=== PATIENT | female | born 1980 | race Caucasian/White ===

== ENCOUNTER 2016-11-26 09:09 | Emergency (ER) | payer BC ==
[~2016-11-26] VITALS: Ht 157.5 cm; Wt 68.0 kg
[2016-11-26] MEDS ORDERED: KETOROLAC TROMETHAMINE 30 MG/ML SYRINGE. IV ONE (10:00)
[2016-11-26] MEDS ORDERED: ONDANSETRON PF 4 MG/2 ML VIAL. IV ONE (10:00)
[2016-11-26 10:12] LABS: BILIRUBIN,URINE NEGATIVE (NEG); GLUCOSE,URINE NEGATIVE (NEG); NITRITE,URINE NEGATIVE (NEG); PH,URINE 5.5; PROTEIN,URINE NEGATIVE (NEG-TRACE); UROBILINOGEN,URINE 0.2 mg/dL (0.2 mg/dL); WBC,URINE OCC /HPF (0-4)
[2016-11-26 10:13] LABS: BACTERIA,URINE FEW /HPF (0-FEW); SQUAMOUS EPITHELIAL CELL,UR MANY /LPF
[2016-11-26 10:16] LABS: CALCIUM 9.1 mg/dL (8.5-10.1); GFR 62.1; POTASSIUM 3.2 mmol/L (3.5-5.1)
--- NOTE | 2016-11-26 10:43 | PHYS DOC ---
Past Medical History Past Medical History: Hypothyroid, Kidney Stone, Migraines, Other Additional Past Medical Histor: ADD,INSOMNIA Past Surgical History: Appendectomy, Hysterectomy, Other Additional Past Surgical Histo: LITHOTRIPSY,BREAST IMPLANTS Additional Information: 0.5 PPD Alcohol Use: Occasionally Drug Use: None Adult General Chief Complaint Chief Complaint: FLANK PAIN [facility] HPI Patient is a 36 year old female with history of kidney stones who presents with left flank pain starting while at work today. Pain is colicky and associated with nausea exactly like prior kidney stone pain. Pain is starting to improve since arrival here, but persists. She denies emesis, fever or chills , dysuria, hematuria, abdominal pain, diarrhea, constipation, cough, dyspnea. Review of Systems Review of Systems Constitutional: Denies fever or chills [] Eyes: Denies change in visual acuity, redness, or eye pain [] HENT: Denies nasal congestion or sore throat [] Respiratory: Denies cough or shortness of breath [] Cardiovascular: No additional information not addressed in HPI [] GI: Denies abdominal pain, nausea, vomiting, bloody stools or diarrhea [] : Denies dysuria or hematuria [] Musculoskeletal: Denies joint pain [] Integument: Denies rash or skin lesions [] Neurologic: Denies headache, focal weakness or sensory changes [] Endocrine: Denies polyuria or polydipsia [] Current Medications Current Medications Current Medications Medications (Trade) Dose Ordered [facility] Start Time Stop Time Status Last Admin Dose Admin Ketorolac Tromethamine (Toradol) 15 mg 1X ONCE 11/26/16 10:00 11/26/16 10:01 DC 11/26/16 10:03 15 MG Ondansetron HCl (Zofran) 4 mg 1X ONCE 11/26/16 10:00 11/26/16 10:01 DC 11/26/16 10:03 4 MG Allergies Allergies Allergies Coded Allergies Type Severity Reaction Last Updated Verified No Known Drug Allergies 11/26/16 No Physical Exam Physical Exam Constitutional: Well developed, well nourished, no acute distress, non-toxic appearance. [] HENT: Normocephalic, atraumatic, bilateral external ears normal, oropharynx moist, nose normal. [] Eyes: PERRLA, EOMI. [] Neck: Normal range of motion, supple. [] Cardiovascular:Heart rate regular rhythm [] Lungs & Thorax: Bilateral breath sounds clear to auscultation [] Abdomen: Bowel sounds normal, soft, no tenderness. [] Skin: Warm, dry, no erythema, no rash. [] Back: No tenderness, no CVA tenderness. [] Extremities: ROM intact, no edema. [] Neurologic: Alert and oriented X 3, normal motor function, normal sensory function, no focal deficits noted. [] Psychologic: Affect normal, judgement normal, mood normal. [] Current Patient Data Vital Signs Vital Signs Date Time Temp Pulse Resp B/P Pulse Ox O2 Delivery O2 Flow Rate FiO2 11/26/16 10:50 71 20 114/72 97 Room Air 11/26/16 09:20 98 98.0 Lab Values Laboratory Tests Test 11/26/16 09:23 11/26/16 09:50 Urine Collection Type Unknown Urine Color Yellow Urine Clarity Clear Urine pH 5.5 Urine Specific [place] 1.025 Urine Protein Negativemg/dL (NEG-TRACE) Urine Glucose (UA) Negativemg/dL (NEG) Urine Ketones (Stick) Negativemg/dL (NEG) Urine Blood Large (NEG) Urine Nitrite Negative (NEG) Urine Bilirubin Negative (NEG) Urine Urobilinogen Dipstick 0.2mg/dL (0.2 mg/dL) Urine Leukocyte Esterase Negative (NEG) Urine RBC 11-20/HPF (0-2) Urine WBC Occ/HPF (0-4) Urine Squamous Epithelial Cells Many/LPF Urine Bacteria Few/HPF (0-FEW) Urine Mucus Marked/LPF Sodium Level 144mmol/L (136-145) Potassium Level 3.2mmol/L (3.5-5.1) L Chloride Level 104mmol/L (98-107) Carbon Dioxide Level 30mmol/L (21-32) Anion Gap 10 (6-14) Blood Urea Nitrogen 14mg/dL (7-20) Creatinine 1.0mg/dL (0.6-1.0) Estimated GFR (Cockcroft-Gault) 62.1 Glucose Level 107mg/dL (70-99) H Calcium Level 9.1mg/dL (8.5-10.1) Laboratory Tests 11/26/16 09:50 Radiology/Procedures Radiology/Procedures Ultrasound left renal Impression: 7 mm nonobstructing left renal calculus. DICTATED and SIGNED BY: LISE BRITO MD DATE: 11/26/16 1104 Course & Med Decision Making Course & Med Decision Making Pertinent Labs and Imaging studies reviewed. (See chart for details) She is feeling better after medications. Workup showing hematuria and ultrasound as above. Suspect passed a kidney stone. Recommend she follow-up with primary care and urology. Return precautions given. She understands and agrees with plan. Dragon Disclaimer Dragon Disclaimer This electronic medical record was generated, in whole or in part, using a voice recognition dictation system. Departure Departure Impression: Primary Impression: Renal colic on left side Disposition: HOME, SELF-CARE Condition: STABLE Referrals: JUAN CAMARENA MD (PCP) Patient Instructions: Kidney Stones, [id number] Additional Instructions: Take toradol (ketorolac) as needed for pain. Take zofran as needed for nausea. Follow up with your urologist and primary care doctor. Return for any concerns. Scripts Ondansetron (Zofran Odt)4 Mg Tab.rapdis1 Tab SL Q8HRS #10 TAB Prov:Bipin COBURN MD 11/26/16 Ketorolac Tromethamine 10 Mg Tablet1 Tab PO TID #15 TAB Prov:Bipin COBURN MD 11/26/16 Bipin COBURN MD Nov 26, 2016 10:43
[2016-11-26] MEDS ORDERED: KETO10TA PO (10:45)
[2016-11-26] MEDS ORDERED: ONDA4TAB10 SL (10:45)
[2016-11-26 10:50] VITALS: BP 114/72
--- NOTE | 2016-11-26 11:10 | RAD ---
Renal ultrasound 11/26/2016 Clinical history: Left flank pain. Technique: A real-time ultrasound examination of both kidneys and the urinary bladder was performed. Multiple images were obtained. Findings: Both kidneys are within normal limits in size and echogenicity. Both kidneys measure 9.9 cm in length. No focal abnormality of the right kidney is seen. A 7 mm echogenic focus is seen within the midpole of the left kidney which appears to shadow to some degree and likely represents a nonobstructing calculus. There is no evidence of hydronephrosis. The urinary bladder is slightly contracted. No abnormality is seen. Impression: 7 mm nonobstructing left renal calculus.
== END 2016-11-26 10:58 | disposition home or self-care (01) ==
LOC: ER 09:09
DX: N23 Unspecified renal colic (principal); E03.9 Hypothyroidism, unspecified; G47.00 Insomnia, unspecified; G43.909 Migraine, unspecified, not intractable, without status migrainosus; F98.8 Other specified behavioral and emotional disorders with onset usually occurring in childhood and adolescence; F17.210 Nicotine dependence, cigarettes, uncomplicated; Z90.710 Acquired absence of both cervix and uterus; Z87.442 Personal history of urinary calculi
CPT/HCPCS: 36415; 76770; 80048; 81001; 96374; 96375; 99285; J1885; J2405

== ENCOUNTER 2017-03-11 09:37 | Emergency (ER) | payer BC ==
[~2017-03-11] VITALS: Ht 165.1 cm; Wt 69.4 kg
[~2017-03-11 09:37] MED LIST: KETO10TA PO; ONDA4TAB10 SL
[2017-03-11 10:04] LABS: GLUCOSE,URINE NEGATIVE (NEG); NITRITE,URINE NEGATIVE (NEG); PROTEIN,URINE 100 mg/dL (NEG-TRACE)
[2017-03-11 10:23] LABS: RBC,URINE TNTC /HPF (0-2)
[2017-03-11 10:25] LABS: BACTERIA,URINE FEW /HPF (0-FEW); SQUAMOUS EPITHELIAL CELL,UR MANY /LPF
[2017-03-11] MEDS ORDERED: IV NORMAL SALINE 1000ML BAG 1,000 ML IV ONE (11:15)
[2017-03-11 11:50] LABS: BASO % 1 % (0-3); EOS % 3 % (0-3); HEMATOCRIT 41.9 % (36.0-47.0); HEMOGLOBIN 14.7 g/dL (12.0-15.5); LYMPH # 2.3 x10^3/uL (1.0-4.8); LYMPH % 36 % (24-48); MEAN CORPUSCULAR HEMOGLOBIN 32 pg (25-35); MEAN CORPUSCULAR HGB CONC 35 g/dL (31-37); MEAN CORPUSCULAR VOLUME 90 fL (79-100); MONO % 4 % (0-9); NEUT % 57 % (31-73); PLATELET COUNT 210 x10^3/uL (140-400); RED BLOOD COUNT 4.63 x10^6/uL (3.50-5.40); RED CELL DISTRIBUTION WIDTH 13.4 % (11.5-14.5); WHITE BLOOD COUNT 6.5 x10^3/uL (4.0-11.0)
--- NOTE | 2017-03-11 11:54 | RAD ---
Examination: CT of the abdomen pelvis without contrast History: History of left flank pain. Comparison: None available Technique: Axial CT images of the abdomen pelvis were performed without contrast with coronal and sagittal reformats are performed PQRS Compliance Statement: One or more of the following individualized dose reduction techniques were utilized for this examination: 1. Automated exposure control 2. Adjustment of the mA and/or kV according to patient size 3. Use of iterative reconstruction technique Findings: Mild groundglass opacities identified in the bibasal lungs. No evidence of free air identified in the abdomen. The evaluation of the solid organs is limited due to lack of IV contrast. Evaluation of the bowel is limited due to lack of oral contrast. The visualized noncontrasted liver, spleen, adrenals grossly appears unremarkable. The gallbladder is mildly distended. The stomach is mildly distended. The visualized pancreas grossly appears unremarkable. The small bowel is nondilated. The appendix is not identified. Feces and gas noted throughout the colon. Urinary bladder is mildly distended. No evidence of intrarenal collecting system calculi or hydronephrosis identified. There is a small calcific density identified along the course of the distal left ureter best visualized on series 2 image #179 measuring 3 mm could be a pelvic phlebolith as there is no evidence of hydronephrosis or a ureteral calculus is not completely excluded. The caliber of the aorta grossly appears unremarkable. No evidence of lytic bony destructive lesion. Bilateral breast prosthesis. Impression: 1. No evidence of intrarenal collecting system calculi identified. Along the course of the left distal ureter on series 2 image 179, here is a 3 mm calcification identified without evidence of hydronephrosis. Differential includes pelvic phlebolith or ureteral calculus without hydronephrosis. 2. Groundglass opacities in the bibasal lungs likely atelectasis or infiltrates.
[2017-03-11 12:28] LABS: CALCIUM 8.2 mg/dL (8.5-10.1); CREATININE 0.8 mg/dL (0.6-1.0); GFR 80.3; POTASSIUM 4.1 mmol/L (3.5-5.1)
[2017-03-11 12:32] VITALS: BP 118/78
[2017-03-11 12:34] LABS: ALBUMIN 3.1 g/dL (3.4-5.0); ALBUMIN/GLOBULIN RATIO 0.9 (1.0-1.7); TOTAL BILIRUBIN 0.3 mg/dL (0.2-1.0); TOTAL PROTEIN 6.6 g/dL (6.4-8.2)
[2017-03-11] MEDS ORDERED: ONDA4TAB10 SL (13:07)
[2017-03-11] MEDS ORDERED: HYDR-971 PO (13:07)
[2017-03-11] MEDS ORDERED: CIPR500T94 PO (13:07)
[2017-03-11] MEDS ORDERED: TAMS0.4C97 PO (13:07)
--- NOTE | 2017-03-11 13:07 | PHYS DOC ---
Past Medical History Past Medical History: Hypothyroid, Kidney Stone, Migraines, Other Additional Past Medical Histor: ADD,INSOMNIA Past Surgical History: Appendectomy, Hysterectomy, Other Additional Past Surgical Histo: LITHOTRIPSY,BREAST IMPLANTS Alcohol Use: Occasionally Drug Use: None Adult General Chief Complaint Chief Complaint: URINARY FREQUENCY HPI HPI Patient is a 36 year old female with history of kidney stones, migraine headaches, hypothyroidism, who presents today with moderate left flank pain radiating to the left low back that began yesterday. Patient is also complaining of hematuria. She has history of hysterectomy. Patient denies any nausea vomiting area did denies any fever. She states she has periumbilical abdominal pain. Patient states she is currently on azithromycin for an upper respiratory infection. Review of Systems Review of Systems Constitutional: Denies fever or chills [] Eyes: Denies change in visual acuity, redness, or eye pain [] HENT: Denies nasal congestion or sore throat [] Respiratory: Denies cough or shortness of breath [] Cardiovascular: No additional information not addressed in HPI [] GI: Denies abdominal pain, nausea, vomiting, bloody stools or diarrhea [] : hematuria and periumbilical pain Musculoskeletal: Left flank pain radiating to or hematuria Left low back pain Integument: Denies rash or skin lesions [] Neurologic: Denies headache, focal weakness or sensory changes [] Endocrine: Denies polyuria or polydipsia [] Current Medications Current Medications Current Medications Medications (Trade) Dose Ordered Sig/[place] Start Time Stop Time Status Last Admin Dose Admin Sodium Chloride 1,000 ml @ 1,000 mls/hr 1X ONCE 03/11/17 11:15 03/11/17 12:14 DC 03/11/17 11:46 1,000 MLS/HR Allergies Allergies Allergies Coded Allergies Type Severity Reaction Last Updated Verified No Known Drug Allergies 11/26/16 No Physical Exam Physical Exam Constitutional: Well developed, well nourished, no acute distress, non-toxic appearance. [] HENT: Normocephalic, atraumatic, bilateral external ears normal, oropharynx moist, no oral exudates, nose normal. [] Eyes: PERRLA, EOMI, conjunctiva normal, no discharge. [] Neck: Normal range of motion, no tenderness, supple, no stridor. [] Cardiovascular:Heart rate regular rhythm, no murmur [] Lungs & Thorax: Bilateral breath sounds clear to auscultation [] Abdomen: Bowel sounds normal, soft, no tenderness, no masses, no pulsatile masses. [] Skin: Warm, dry, no erythema, no rash. [] Back: No tenderness, no CVA tenderness. [] Extremities: No tenderness, no cyanosis, no clubbing, ROM intact, no edema. [] Neurologic: Alert and oriented X 3, normal motor function, normal sensory function, no focal deficits noted. [] Psychologic: Affect normal, judgement normal, mood normal. [] Current Patient Data Vital Signs Vital Signs Date Time Temp Pulse Resp B/P (MAP) Pulse Ox O2 Delivery O2 Flow Rate FiO2 03/11/17 12:32 60 16 118/78 (91) 99 Room Air 03/11/17 09:44 97.9 97.9 Lab Values Laboratory Tests Test 03/11/17 09:44 03/11/17 11:40 03/11/17 12:10 Urine Collection Type Unknown Urine Color Brown Urine Clarity Turbid Urine pH 6.0 Urine Specific [place] >=1.030 Urine Protein 100 mg/dL (NEG-TRACE) Urine Glucose (UA) Negative mg/dL (NEG) Urine Ketones (Stick) mg/dL (NEG) Urine Blood Large (NEG) Urine Nitrite Negative (NEG) Urine Bilirubin (NEG) Urine Urobilinogen Dipstick 1.0 mg/dL (0.2 mg/dL) Urine Leukocyte Esterase (NEG) Urine RBC Tntc /HPF (0-2) Urine WBC 1-4 /HPF (0-4) Urine Squamous Epithelial Cells Many /LPF Urine Bacteria Few /HPF (0-FEW) Urine Mucus Mod /LPF White Blood Count 6.5 x10^3/uL (4.0-11.0) Red Blood Count 4.63 x10^6/uL (3.50-5.40) Hemoglobin 14.7 g/dL (12.0-15.5) Hematocrit 41.9 % (36.0-47.0) Mean Corpuscular Volume 90 fL (79-100) Mean Corpuscular Hemoglobin 32 pg (25-35) Mean Corpuscular Hemoglobin Concent 35 g/dL (31-37) Red Cell Distribution Width 13.4 % (11.5-14.5) Platelet Count 210 x10^3/uL (140-400) Neutrophils (%) (Auto) 57 % (31-73) Lymphocytes (%) (Auto) 36 % (24-48) Monocytes (%) (Auto) 4 % (0-9) Eosinophils (%) (Auto) 3 % (0-3) Basophils (%) (Auto) 1 % (0-3) Neutrophils # (Auto) 3.7 x10^3uL (1.8-7.7) Lymphocytes # (Auto) 2.3 x10^3/uL (1.0-4.8) Monocytes # (Auto) 0.3 x10^3/uL (0.0-1.1) Eosinophils # (Auto) 0.2 x10^3/uL (0.0-0.7) Basophils # (Auto) 0.0 x10^3/uL (0.0-0.2) Sodium Level 141 mmol/L (136-145) Potassium Level 4.1 mmol/L (3.5-5.1) Chloride Level 106 mmol/L (98-107) Carbon Dioxide Level 30 mmol/L (21-32) Anion Gap 5 (6-14) L Blood Urea Nitrogen 19 mg/dL (7-20) Creatinine 0.8 mg/dL (0.6-1.0) Estimated GFR (Cockcroft-Gault) 80.3 BUN/Creatinine Ratio 24 (6-20) H Glucose Level 83 mg/dL (70-99) Calcium Level 8.2 mg/dL (8.5-10.1) L Total Bilirubin 0.3 mg/dL (0.2-1.0) Aspartate Amino Transferase (AST) 25 U/L (15-37) Alanine Aminotransferase (ALT) 38 U/L (14-59) Alkaline Phosphatase 75 U/L (46-116) Total Protein 6.6 g/dL (6.4-8.2) Albumin 3.1 g/dL (3.4-5.0) L Albumin/Globulin Ratio 0.9 (1.0-1.7) L Lipase 90 U/L (73-393) Laboratory Tests 03/11/17 11:40 Laboratory Tests 03/11/17 12:10 EKG EKG [] Radiology/Procedures Radiology/Procedures []PROCEDURE: CT ABDOMEN PELVIS WO CONTRAST Examination: CT of the abdomen pelvis without contrast History: History of left flank pain. Comparison: None available Technique: Axial CT images of the abdomen pelvis were performed without contrast with coronal and sagittal reformats are performed RS Compliance Statement: One or more of the following individualized dose reduction techniques were utilized for this examination: 1. Automated exposure control 2. Adjustment of the mA and/or kV according to patient size 3. Use of iterative reconstruction technique Findings: Mild groundglass opacities identified in the bibasal lungs. No evidence of free air identified in the abdomen. The evaluation of the solid organs is limited due to lack of IV contrast. Evaluation of the bowel is limited due to lack of oral contrast. The visualized noncontrasted liver, spleen, adrenals grossly appears unremarkable. The gallbladder is mildly distended. The stomach is mildly distended. The visualized pancreas grossly appears unremarkable. The small bowel is nondilated. The appendix is not identified. Feces and gas noted throughout the colon. Urinary bladder is mildly distended. No evidence of intrarenal collecting system calculi or hydronephrosis identified. There is a small calcific density identified along the course of the distal left ureter best visualized on series 2 image #179 measuring 3 mm could be a pelvic phlebolith as there is no evidence of hydronephrosis or a ureteral calculus is not completely excluded. The caliber of the aorta grossly appears unremarkable. No evidence of lytic bony destructive lesion. Bilateral breast prosthesis. Impression: 1. No evidence of intrarenal collecting system calculi identified. Along the course of the left distal ureter on series 2 image 179, here is a 3 mm calcification identified without evidence of hydronephrosis. Differential includes pelvic phlebolith or ureteral calculus without hydronephrosis. 2. Groundglass opacities in the bibasal lungs likely atelectasis or infiltrates. DICTATED and SIGNED BY: CARMELO PERDOMO MD DATE: 03/11/17 9071 CC: HEMA SMITH APRN; NON,STAFF; JAUN CAMARENA MD ~ Course & Med Decision Making Course & Med Decision Making Pertinent Labs and Imaging studies reviewed. (See chart for details) Patient is in the ED with complaints of hematuria and left flank pain radiating to the left low back that began yesterday. Patient's labs and negative for any acute findings. Urine was unable to determine if patient has infection on not because of the color. CT of the abdomen and pelvic shows calcifications on the left ureter suspicious for a stone 3mm in size. Ct also concerned for possible atelectasis or infiltrates. Patient was discharged with Flomax and Cipro. Her urine was sent to lab for culture. She is to follow-up with her PCP in one week or urologist. Marcial Disclaimer Marcial Disclaimer This electronic medical record was generated, in whole or in part, using a voice recognition dictation system. Departure Departure Impression: Primary Impression: Renal colic on left side Disposition: 01 HOME, SELF-CARE Condition: STABLE Referrals: JUAN CAMARENA MD (PCP) follow up in one week Patient Instructions: Kidney Stones, [id number] Additional Instructions: You have a possible infected kidney stone. We'll put you on antibiotics Cipro. Stop taking the Z-pack. Follow-up with your doctor in one week. Come back to the ED symptoms worsen. Scripts Ondansetron (ZOFRAN ODT) 4 Mg Tab.rapdis 1 TAB SL Q8HRS, #15 TAB Prov: HEMA SMITH APRN 03/11/17 Hydrocodone/Apap 5-325 (NORCO 5-325 TABLET) 1 Each Tablet 1-2 TAB PO Q4-6HRS, #12 TAB Prov: HEMA SMITH APRN 03/11/17 Tamsulosin Hcl (FLOMAX) 0.4 Mg Cap.er.24h 1 CAP PO DAILY, #7 CAP 11 Refills Prov: HEMA SMITH APRN 03/11/17 Ciprofloxacin Hcl (CIPRO) 500 Mg Tablet 1 TAB PO BID, #14 TAB Prov: HEMA SMITH APRN 03/11/17 HEMA SMITH APRN Mar 11, 2017 13:07
== END 2017-03-11 13:15 | disposition home or self-care (01) ==
LOC: ER 09:37
DX: N23 Unspecified renal colic (principal); J06.9 Acute upper respiratory infection, unspecified; E03.9 Hypothyroidism, unspecified; G43.909 Migraine, unspecified, not intractable, without status migrainosus; G47.00 Insomnia, unspecified; F98.8 Other specified behavioral and emotional disorders with onset usually occurring in childhood and adolescence; Z87.442 Personal history of urinary calculi; Z90.710 Acquired absence of both cervix and uterus; Z90.49 Acquired absence of other specified parts of digestive tract
CPT/HCPCS: 36415; 74176; 80053; 81001; 83690; 85027; 87086; 96360; 99285; J7030

== ENCOUNTER 2017-03-20 10:25 | Inpatient (IN) | payer BC ==
[2017-03-20] VITALS (9 sets, daily range): BP systolic 101–122; BP diastolic 55–76
[~2017-03-20] VITALS: Ht 157.5 cm; Wt 78.5 kg
[~2017-03-20 10:25] MED LIST changes: +CIPR500T94 PO; +HYDR-971 PO; +TAMS0.4C97 PO
[2017-03-20] MEDS: fentaNYL PF VIAL 100 MCG/2 ML VIAL IV PRN ×4 (12:36→18:06)
--- NOTE | 2017-03-20 12:57 | PDOC ---
PROGRESS NOTES Subjective Subjective Pt. with left renal colic Objective Objective Vital Signs Date Time Temp Pulse Resp B/P (MAP) Pulse Ox O2 Delivery O2 Flow Rate FiO2 03/20/17 12:36 Room Air Physical Exam Physical Exam Pt. with 3 mm left distal ureteral stone with obstruction Plan Plan of Care I discussed with the pt. her stone and we discussed the options, alternatives, benefits, risks, and possible complications of continued observation vs. surgical intervention with cystoscopy, left retrograde pyelogram with possible left ureteroscopy with possible laser lithotripsy and stent placement. Pt. understands and wishes to proceed with operation. Will proceed accordingly. Comment Review of Relevant I have reviewed the following items salomon (where applicable) has been applied. Medications Current Medications Fentanyl Citrate (Fentanyl 2ml Vial) 50 mcg PRN Q2HR PRN IV PAIN Last administered on 03/20/17 12:36; Start 03/20/17 at 12:30 Ondansetron HCl (Zofran) 4 mg PRN Q6HRS PRN IV NAUSEA/VOMITING; Start 03/20/17 at 12:30 Sodium Chloride 1,000 ml @ 125 mls/hr 1X ONCE IV Last administered on 12:36; Start 03/20/17 at 13:00; Stop 03/20/17 at 20:59 Active Scripts Active Zofran Odt (Ondansetron) 4 Mg Tab.rapdis 1 Tab SL Q8HRS [place] 5-325 Tablet (Acetaminophen/Hydrocodone Bitart) 1 Each Tablet 1-2 Tab PO Q4-6HRS Flomax (Tamsulosin Hcl) 0.4 Mg Cap.er.24h 1 Cap PO DAILY Cipro (Ciprofloxacin Hcl) 500 Mg Tablet 1 Tab PO BID Zofran Odt (Ondansetron) 4 Mg Tab.rapdis 1 Tab SL Q8HRS Ketorolac Tromethamine 10 Mg Tablet 1 Tab PO TID Vitals/I & O Vital Sign - Last 24 Hours 03/20/17 12:36 O2 Delivery Room Air ELAN GARCIA MD Mar 20, 2017 12:57
[2017-03-20] MEDS ORDERED: IV NORMAL SALINE 1000ML BAG 1,000 ML IV ONE (13:00)
[2017-03-20 13:03] LABS: BASO % 0 % (0-3); EOS % 0 % (0-3); HEMATOCRIT 40.8 % (36.0-47.0); HEMOGLOBIN 13.7 g/dL (12.0-15.5); LYMPH # 1.6 x10^3/uL (1.0-4.8); LYMPH % 15 % (24-48); MEAN CORPUSCULAR HEMOGLOBIN 31 pg (25-35); MEAN CORPUSCULAR HGB CONC 34 g/dL (31-37); MEAN CORPUSCULAR VOLUME 94 fL (79-100); MONO % 3 % (0-9); NEUT % 82 % (31-73); PLATELET COUNT 264 x10^3/uL (140-400); RED BLOOD COUNT 4.36 x10^6/uL (3.50-5.40); RED CELL DISTRIBUTION WIDTH 13.7 % (11.5-14.5); WHITE BLOOD COUNT 10.9 x10^3/uL (4.0-11.0)
[2017-03-20 13:12] LABS: INR 0.9 (0.8-1.1)
--- NOTE | 2017-03-20 13:17 | PDOC2 ---
UROLOGY CONSULT Date of Admission DATE: 03/20/17 TIME: 13:13 ROS ROS: RESPIRATORY: Shortness of breath denies. Cough denies. UROLOGY: Denies blood in urine. Denies difficulty urinating Current Medications Current Medications Fentanyl Citrate (Fentanyl 2ml Vial) 50 mcg PRN Q2HR PRN IV PAIN Last administered on 03/20/17 12:36; Start 03/20/17 at 12:30 Ondansetron HCl (Zofran) 4 mg PRN Q6HRS PRN IV NAUSEA/VOMITING; Start 03/20/17 at 12:30 Sodium Chloride 1,000 ml @ 125 mls/hr 1X ONCE IV Last administered on 12:36; Start 03/20/17 at 13:00; Stop 03/20/17 at 20:59 Active Scripts Active Zofran Odt (Ondansetron) 4 Mg Tab.rapdis 1 Tab SL Q8HRS [place] 5-325 Tablet (Acetaminophen/Hydrocodone Bitart) 1 Each Tablet 1-2 Tab PO Q4-6HRS Flomax (Tamsulosin Hcl) 0.4 Mg Cap.er.24h 1 Cap PO DAILY Cipro (Ciprofloxacin Hcl) 500 Mg Tablet 1 Tab PO BID Zofran Odt (Ondansetron) 4 Mg Tab.rapdis 1 Tab SL Q8HRS Ketorolac Tromethamine 10 Mg Tablet 1 Tab PO TID Allergies: Coded Allergies: No Known Drug Allergies (Unverified , 11/26/16) Physical Examination PHYSICAL EXAMINATION: GENERAL: Gen. appearance: No acute distress. Mood/affect: Pleasant. HEENT: Head: Normocephalic, atraumatic. Airway Impairment: No. CHEST: Shape and expansion: Normal. Expansion: Normal. SKIN: General: Warm. Color: Good. GENITOURINARY:External genitalia - wnl. NEUROLOGICAL: Mental status: Alert and oriented 3. Language: Normal. VITALS Vital Signs Date Time Temp Pulse Resp B/P (MAP) Pulse Ox O2 Delivery O2 Flow Rate FiO2 03/20/17 12:36 Room Air 03/20/17 11:35 97.3 55 20 117/76 (90) 99 97.3 Labs Laboratory Tests Test 03/20/17 12:50 White Blood Count 10.9 x10^3/uL (4.0-11.0) Red Blood Count 4.36 x10^6/uL (3.50-5.40) Hemoglobin 13.7 g/dL (12.0-15.5) Hematocrit 40.8 % (36.0-47.0) Mean Corpuscular Volume 94 fL (79-100) Mean Corpuscular Hemoglobin 31 pg (25-35) Mean Corpuscular Hemoglobin Concent 34 g/dL (31-37) Red Cell Distribution Width 13.7 % (11.5-14.5) Platelet Count 264 x10^3/uL (140-400) Neutrophils (%) (Auto) 82 % (31-73) Lymphocytes (%) (Auto) 15 % (24-48) Monocytes (%) (Auto) 3 % (0-9) Eosinophils (%) (Auto) 0 % (0-3) Basophils (%) (Auto) 0 % (0-3) Neutrophils # (Auto) 8.9 x10^3uL (1.8-7.7) Lymphocytes # (Auto) 1.6 x10^3/uL (1.0-4.8) Monocytes # (Auto) 0.4 x10^3/uL (0.0-1.1) Eosinophils # (Auto) 0.0 x10^3/uL (0.0-0.7) Basophils # (Auto) 0.0 x10^3/uL (0.0-0.2) Prothrombin Time 12.0 SEC (11.7-14.0) Prothromb Time International Ratio 0.9 (0.8-1.1) Laboratory Tests Test 03/20/17 12:50 White Blood Count 10.9 x10^3/uL (4.0-11.0) Red Blood Count 4.36 x10^6/uL (3.50-5.40) Hemoglobin 13.7 g/dL (12.0-15.5) Hematocrit 40.8 % (36.0-47.0) Mean Corpuscular Volume 94 fL (79-100) Mean Corpuscular Hemoglobin 31 pg (25-35) Mean Corpuscular Hemoglobin Concent 34 g/dL (31-37) Red Cell Distribution Width 13.7 % (11.5-14.5) Platelet Count 264 x10^3/uL (140-400) Neutrophils (%) (Auto) 82 % (31-73) Lymphocytes (%) (Auto) 15 % (24-48) Monocytes (%) (Auto) 3 % (0-9) Eosinophils (%) (Auto) 0 % (0-3) Basophils (%) (Auto) 0 % (0-3) Neutrophils # (Auto) 8.9 x10^3uL (1.8-7.7) Lymphocytes # (Auto) 1.6 x10^3/uL (1.0-4.8) Monocytes # (Auto) 0.4 x10^3/uL (0.0-1.1) Eosinophils # (Auto) 0.0 x10^3/uL (0.0-0.7) Basophils # (Auto) 0.0 x10^3/uL (0.0-0.2) Prothrombin Time 12.0 SEC (11.7-14.0) Prothromb Time International Ratio 0.9 (0.8-1.1) Assessment/Plan The patient is a very pleasant 36-year-old white female with history of left renal colic for the past 9 days. Patient was seen in the emergency room on and diagnosed with the left ureteral stone. Patient has continued to have intermittent pain which became severe this morning. Patient with long history of stone disease and she has had prior stone manipulation in the past. Past medical history is significant for hypothyroidism, kidney stones, migraines, ADD , insomnia. Patient has had prior appendectomy hysterectomy cystocele rectocele and sling placement, lithotripsy, breast augmentation. Patient normally on thyroid medication along with hydrochlorothiazide and medication for migraine insomnia and ADD. Patient with no known drug allergies. On physical exam patient has some tenderness in the left flank and abdomen. Patient's CT scan from 03/20/17 shows a 2-3 mm calculus in the distal left ureter producing mild hydroureteronephrosis. White count is 11.4. Creatinine is 1.4. Urine shows greater than 40 red cells 1-4 white cells and a few bacteria and is nitrite positive. I discussed with the patient her left ureteral stone and we discussed the options alternatives benefits risks and possible complications of continued observation and medical expulsive therapy versus surgical intervention with cystoscopy left retrograde pyelogram possible ureteroscopy possible laser lithotripsy and possible left ureteral stent placement. Patient understands this and does wish proceed ahead with operation. We'll therefore proceed accordingly. ELAN GARCIA MD Mar 20, 2017 13:16
[2017-03-20 13:30] LABS: ALBUMIN 3.4 g/dL (3.4-5.0); CALCIUM 7.8 mg/dL (8.5-10.1); CREATININE 1.4 mg/dL (0.6-1.0); GFR 42.1; TOTAL BILIRUBIN 0.2 mg/dL (0.2-1.0); TOTAL PROTEIN 6.9 g/dL (6.4-8.2)
[2017-03-20] MEDS ORDERED: fentaNYL PF VIAL 100 MCG/2 ML VIAL IV PRN (13:45)
[2017-03-20] MEDS ORDERED: LIDOCAINE 1% 1 ML SYRINGE. ID PRN (13:45)
[2017-03-20] MEDS ORDERED: HYDROmorphone 2 MG/ML VIAL IV PRN (13:45)
[2017-03-20] MEDS ORDERED: PROCHLORPERAZINE 10 MG/2 ML VIAL. IV PRN (13:45)
[2017-03-20] MEDS ORDERED: MORPHINE SULFATE 2 MG/ML DISP.SYRIN. IV PRN (13:45)
[2017-03-20] MEDS ORDERED: IV RINGERS,LACTATED 1000ML 1,000 ML IV SCH (14:00)
[2017-03-20] MEDS ORDERED: PHEN-443 PO (14:05)
[2017-03-20] MEDS ORDERED: LEVO100T PO (14:05)
[2017-03-20] MEDS ORDERED: HYDR25TA9 PO (14:05)
[2017-03-20] MEDS ORDERED: ZOLP10TA PO (14:05)
[2017-03-20] MEDS ORDERED: IOHEXOL 300 MG/ML 50 ML VIAL. ONE (14:15)
[2017-03-20] MEDS ORDERED: LIDOCAINE 2% JELLY 6ML IN APPLICATOR. ONE (14:15)
[2017-03-20] MEDS: ONDANSETRON PF 4 MG/2 ML VIAL. IV PRN (15:07)
[2017-03-20] MEDS ORDERED: PROPOFOL 20 ML IV ONE (15:26)
[2017-03-20] MEDS ORDERED: fentaNYL PF VIAL 100 MCG/2 ML VIAL ONE (15:26)
[2017-03-20] MEDS ORDERED: LIDOCAINE 2% PF Vial for OR 5 ML VIAL. ONE (15:26)
[2017-03-20] MEDS ORDERED: ONDANSETRON PF 4 MG/2 ML VIAL. ONE (15:26)
[2017-03-20] MEDS ORDERED: DEXAMETHASONE SOD PHOS 20 MG/5 ML VIAL. ONE (15:26)
[2017-03-20] MEDS ORDERED: hydrALAZINE 20 MG/ML VIAL. IVP PRN (15:30)
[2017-03-20] MEDS ORDERED: ONDANSETRON ODT 4 MG TAB.RAPDIS. PO PRN (15:30)
[2017-03-20] MEDS ORDERED: traMADol 50 MG TABLET PO PRN (15:30)
[2017-03-20] MEDS ORDERED: ONDANSETRON PF 4 MG/2 ML VIAL. IV PRN (15:30)
[2017-03-20] MEDS ORDERED: DOCUSATE SODIUM 100 MG CAPSULE. PO PRN (15:30)
[2017-03-20] MEDS ORDERED: ACETAMINOPHEN 325 MG TABLET. PO PRN (15:30)
[2017-03-20] MEDS ORDERED: HYDROcodone/APAP 5/325MG 1 TAB TABLET PO PRN (15:30)
--- NOTE | 2017-03-20 15:35 | PDOC1 ---
History and Physical Date of Admission Date of Admission 03/20/17 Identification/Chief Complaint Chief Complaint left flank pain Problems: Source Source: Chart review, Patient History of Present Illness History of Present Illness 36yo F, was transferred from [facility] FOR KIDney stone. SHe has h/o bl kidney stone , lithotripsy. she fu with uro, but never knows the etiology. She was here 03/11 for hematuria wo much pain, CT showed left side stone 3mm, was dced with flomax and cipro, but only took cipro, which didnot help frequent urination. Denies dysuria, urgency. She has severe left flank pain today, 03/31, radiating to left groin, without N/V , fever, chills. She went to [facility], CT showed the 3mm stone again. Past Medical History Endocrine: Hypothyroidism Past Surgical History Past Surgical History: Hysterectomy Family History Family History kidney stone Social History Smoke: <1 pack per day ALCOHOL: social Drugs: None Current Medications Current Medications Current Medications Medications (Trade) Dose Ordered Sig/Ewa Start Time Stop Time Status Last Admin Dose Admin Fentanyl Citrate (Fentanyl 2ml Vial) 50 mcg PRN Q5MIN PRN 03/20/17 13:45 03/21/17 13:44 Hydromorphone HCl (Dilaudid) 0.5 mg PRN Q10MIN PRN 03/20/17 13:45 03/21/17 13:44 Iohexol (Omnipaque 300 Mg/ml) 50 ml STK-MED ONCE 03/20/17 14:15 03/20/17 14:16 DC Lidocaine HCl (Glydo (Lidocaine) Jelly) 6 coco STK-MED ONCE 03/20/17 14:15 03/20/17 14:16 DC Morphine Sulfate 1 mg PRN Q10MIN PRN 03/20/17 13:45 03/21/17 13:44 Ondansetron HCl (Zofran) 4 mg PRN Q6HRS PRN 03/20/17 12:30 03/20/17 15:07 4 MG Prochlorperazine Edisylate (Compazine) 5 mg PACU PRN PRN 03/20/17 13:45 03/21/17 13:44 Ringer's Solution 1,000 ml @ 30 mls/hr Q24H 03/20/17 14:00 03/21/17 13:59 Sodium Chloride 1,000 ml @ 125 mls/hr 1X ONCE 03/20/17 13:00 03/20/17 20:59 03/20/17 12:36 125 MLS/HR Allergies Allergies Allergies Coded Allergies Type Severity Reaction Last Updated Verified No Known Drug Allergies 11/26/16 No ROS Review of System CONSTITUTIONAL: No fever or chills EYES: No recent changes SKIN: No rash or itching CARDIOVASCULAR: No chest pain, syncope, palpitations, or edema RESPIRATORY: No SOB or cough GASTROINTESTINAL: No nausea, vomiting or abdominal pain NEUROLOGICAL: No headaches or weakness ENDOCRINE: No cold or heat intolerance GENITOURINARY: No urgency or frequency of urination MUSCULOSKELETAL: No back pain or joint pain LYMPHATICS: No enlarged lymph nodes PSYCHIATRIC: No anxiety or depression Physical Exam Physical Exam GEN.: No apparent distress. Alert and oriented. HEENT: Head is normocephalic, atraumatic NECK: Supple. LUNGS: Clear to auscultation. HEART: RRR, S1, S2 present. Peripheral pulses intact ABDOMEN: Soft, Positive bowel sounds. left CVA and LLQ mild tenderness EXTREMITIES: Without any cyanosis. NEUROLOGIC: Normal speech, normal tone PSYCHIATRIC: Normal affect, normal mood. SKIN: No ulcerations Vitals Vitals Vital Signs Date Time Temp Pulse Resp B/P (MAP) Pulse Ox O2 Delivery O2 Flow Rate FiO2 03/20/17 15:10 Room Air 03/20/17 15:00 97.3 56 20 116/75 (89) 99 97.3 Labs Labs Laboratory Tests Test 03/20/17 12:50 White Blood Count 10.9 x10^3/uL (4.0-11.0) Red Blood Count 4.36 x10^6/uL (3.50-5.40) Hemoglobin 13.7 g/dL (12.0-15.5) Hematocrit 40.8 % (36.0-47.0) Mean Corpuscular Volume 94 fL (79-100) Mean Corpuscular Hemoglobin 31 pg (25-35) Mean Corpuscular Hemoglobin Concent 34 g/dL (31-37) Red Cell Distribution Width 13.7 % (11.5-14.5) Platelet Count 264 x10^3/uL (140-400) Neutrophils (%) (Auto) 82 % (31-73) Lymphocytes (%) (Auto) 15 % (24-48) Monocytes (%) (Auto) 3 % (0-9) Eosinophils (%) (Auto) 0 % (0-3) Basophils (%) (Auto) 0 % (0-3) Neutrophils # (Auto) 8.9 x10^3uL (1.8-7.7) Lymphocytes # (Auto) 1.6 x10^3/uL (1.0-4.8) Monocytes # (Auto) 0.4 x10^3/uL (0.0-1.1) Eosinophils # (Auto) 0.0 x10^3/uL (0.0-0.7) Basophils # (Auto) 0.0 x10^3/uL (0.0-0.2) Prothrombin Time 12.0 SEC (11.7-14.0) Prothromb Time International Ratio 0.9 (0.8-1.1) Sodium Level 142 mmol/L (136-145) Potassium Level 4.0 mmol/L (3.5-5.1) Chloride Level 105 mmol/L (98-107) Carbon Dioxide Level 29 mmol/L (21-32) Anion Gap 8 (6-14) Blood Urea Nitrogen 22 mg/dL (7-20) Creatinine 1.4 mg/dL (0.6-1.0) Estimated GFR (Cockcroft-Gault) 42.1 BUN/Creatinine Ratio 16 (6-20) Glucose Level 127 mg/dL (70-99) Calcium Level 7.8 mg/dL (8.5-10.1) Total Bilirubin 0.2 mg/dL (0.2-1.0) Aspartate Amino Transf (AST/SGOT) 47 U/L (15-37) Alanine Aminotransferase (ALT/SGPT) 41 U/L (14-59) Alkaline Phosphatase 77 U/L (46-116) Total Protein 6.9 g/dL (6.4-8.2) Albumin 3.4 g/dL (3.4-5.0) Albumin/Globulin Ratio 1.0 (1.0-1.7) Laboratory Tests Test 03/20/17 12:50 White Blood Count 10.9 x10^3/uL (4.0-11.0) Red Blood Count 4.36 x10^6/uL (3.50-5.40) Hemoglobin 13.7 g/dL (12.0-15.5) Hematocrit 40.8 % (36.0-47.0) Mean Corpuscular Volume 94 fL (79-100) Mean Corpuscular Hemoglobin 31 pg (25-35) Mean Corpuscular Hemoglobin Concent 34 g/dL (31-37) Red Cell Distribution Width 13.7 % (11.5-14.5) Platelet Count 264 x10^3/uL (140-400) Neutrophils (%) (Auto) 82 % (31-73) Lymphocytes (%) (Auto) 15 % (24-48) Monocytes (%) (Auto) 3 % (0-9) Eosinophils (%) (Auto) 0 % (0-3) Basophils (%) (Auto) 0 % (0-3) Neutrophils # (Auto) 8.9 x10^3uL (1.8-7.7) Lymphocytes # (Auto) 1.6 x10^3/uL (1.0-4.8) Monocytes # (Auto) 0.4 x10^3/uL (0.0-1.1) Eosinophils # (Auto) 0.0 x10^3/uL (0.0-0.7) Basophils # (Auto) 0.0 x10^3/uL (0.0-0.2) Prothrombin Time 12.0 SEC (11.7-14.0) Prothromb Time International Ratio 0.9 (0.8-1.1) Sodium Level 142 mmol/L (136-145) Potassium Level 4.0 mmol/L (3.5-5.1) Chloride Level 105 mmol/L (98-107) Carbon Dioxide Level 29 mmol/L (21-32) Anion Gap 8 (6-14) Blood Urea Nitrogen 22 mg/dL (7-20) Creatinine 1.4 mg/dL (0.6-1.0) Estimated GFR (Cockcroft-Gault) 42.1 BUN/Creatinine Ratio 16 (6-20) Glucose Level 127 mg/dL (70-99) Calcium Level 7.8 mg/dL (8.5-10.1) Total Bilirubin 0.2 mg/dL (0.2-1.0) Aspartate Amino Transf (AST/SGOT) 47 U/L (15-37) Alanine Aminotransferase (ALT/SGPT) 41 U/L (14-59) Alkaline Phosphatase 77 U/L (46-116) Total Protein 6.9 g/dL (6.4-8.2) Albumin 3.4 g/dL (3.4-5.0) Albumin/Globulin Ratio 1.0 (1.0-1.7) VTE Prophylaxis Ordered VTE Prophylaxis Devices: Yes VTE Pharmacological Prophylaxi: Yes Assessment/Plan Assessment/Plan left ureteral stone 3mm obstructive nephropathy with the stone hypothyroidism plan: uro consulted, will do cystoscopy today cont home meds ivf pain meds flomax labs daily SUNIL Celestin dc, MD Mar 20, 2017 15:35
[2017-03-20] MEDS ORDERED: ZOLPIDEM 5 MG TABLET. PO PRN (15:45)
[2017-03-20] MEDS ORDERED: ePHEDrine PF IN SALINE 50 MG/5 ML DISP.SYRIN IV ONE (16:29)
[2017-03-20] MEDS ORDERED: SCOPOLAMINE 1.5MG PATCH. TD SCH (16:30)
--- NOTE | 2017-03-20 17:14 | PDOC4 ---
Operative Note Operative Note pre-op dx-left distal ureteral stone procedure-cystoscopy, left retrograde pyelogram, left ureteroscopy with stone removal and left ureteral stent placement Surgeon-ysabel cortez-general Pt. to PACU in stable condition ELAN GARCIA MD Mar 20, 2017 17:14
[2017-03-20] MEDS ORDERED: PHENAZOPYRIDINE 200 MG TABLET. PO SCH (21:00)
[2017-03-20] MEDS ORDERED: TAMSULOSIN 0.4 MG CAP.ER.24H. PO SCH (21:00)
[2017-03-20] MEDS ORDERED: ZOLPIDEM 5 MG TABLET. PO SCH (21:00)
[2017-03-20] MEDS: MORPHINE SULFATE 2 MG/ML DISP.SYRIN. IV PRN (21:13)
[2017-03-20] MEDS: IV NORMAL SALINE 1000ML BAG 1,000 ML IV SCH (23:00)
--- NOTE | 2017-03-20 23:26 | ACF ---
Admission Forms Criteria RENAL COLIC AND KIDNEY STONES Clinical Indications for Admission to Inpatient Care ( Place 'X' for any and all applicable criteria): Admission is indicated for ANY ONE of the following (1)(2)(3)(4): [X]I. Inpatient admission required rather than observation care (Also use Renal Colic and Kidney Stones: Observation Care Criteria as appropriate) because of ANY ONE of the following: [X]a) Severe pain requiring acute inpatient management [ ]b) Urinary tract infection identified [ ]c) Vomiting that is severe or persistent [ ]d) IV fluid required rather than oral rehydration to replace significant ongoing (eg, for greater than 24 hours) losses (greater than 200 mL/hr or 3 L/m2 per day) [ ]e) Percutaneous or open drainage (eg, abscess, biliary tract) procedures [ ]f) Other condition, treatment or monitoring requiring inpatient admission [ ]II. Impending acute renal failure [ ]III. Bilateral obstruction [ ]IV. Single kidney with obstruction [ ]V. Transplanted kidney with obstruction [ ]. Possible open surgical procedure needed (eg, pyonephrosis, stone removal not amendable to other means) [ ]VII. Hemodynamic instability Extended stay beyond goal length of stay may be needed for(2)(3)(31): [ ]a) Failed initial stone removal (32) [ ]b) Pyonephrosis [ ]c) Obstructive uropathy with urinary tract infection [ ]d) Procedure complications [ ]e) Comorbidities (22) The original [facility] content created by [employer] has been revised. The portions of the content which have been revised are identified through the use of italic text or in bold, and [facility] has neither reviewed nor approved the modified material. All other unmodified content is copyright [facility]. Please see references footnoted in the original [facility] edition 2016 Admission Criteria Met?: Yes CATHY POOL Mar 20, 2017 23:26
[2017-03-21] MEDS: MORPHINE SULFATE 2 MG/ML DISP.SYRIN. IV PRN (01:23)
[2017-03-21] MEDS: ONDANSETRON PF 4 MG/2 ML VIAL. IV PRN (01:31)
[2017-03-21 03:03] VITALS: BP 95/45
[2017-03-21 04:30] VITALS: BP 110/54
[2017-03-21] MEDS: fentaNYL PF VIAL 100 MCG/2 ML VIAL IV PRN ×3 (04:38→11:10)
[2017-03-21] MEDS ORDERED: PHENAZOPYRIDINE 200 MG TABLET. PO ONE (05:00)
[2017-03-21 06:43] LABS: BASO % 0 % (0-3); EOS % 0 % (0-3); HEMATOCRIT 40.4 % (36.0-47.0); HEMOGLOBIN 13.3 g/dL (12.0-15.5); LYMPH % 10 % (24-48); MEAN CORPUSCULAR HEMOGLOBIN 31 pg (25-35); MEAN CORPUSCULAR HGB CONC 33 g/dL (31-37); MEAN CORPUSCULAR VOLUME 95 fL (79-100); MONO % 2 % (0-9); NEUT % 87 % (31-73); PLATELET COUNT 268 x10^3/uL (140-400); RED BLOOD COUNT 4.27 x10^6/uL (3.50-5.40); RED CELL DISTRIBUTION WIDTH 13.8 % (11.5-14.5); WHITE BLOOD COUNT 10.3 x10^3/uL (4.0-11.0)
[2017-03-21 07:00] VITALS: BP 104/62
[2017-03-21] MEDS ORDERED: LEVOTHYROXINE 100 MCG TABLET PO SCH (07:00)
[2017-03-21 07:20] LABS: CALCIUM 8.1 mg/dL (8.5-10.1); GFR 62.1; POTASSIUM 3.8 mmol/L (3.5-5.1)
[2017-03-21 07:54] LABS: % BASOS 1 % (0-3); PLT ESTIMATE ADEQUATE (ADEQUATE)
--- NOTE | 2017-03-21 08:56 | PDOC ---
PROGRESS NOTES Subjective Subjective Pt. feeling well Objective Objective Vital Signs Date Time Temp Pulse Resp B/P (MAP) Pulse Ox O2 Delivery O2 Flow Rate FiO2 03/21/17 08:32 Room Air 03/21/17 07:00 98.1 56 18 104/62 (76) 97 98.1 03/20/17 18:11 6 Intake and Output 03/21/17 06:59 Intake Total 1480 ml Output Total 750 ml Balance 730 ml Intake Oral 180 ml IV Total 1300 ml Output Urine Total 750 ml # Voids 2 Physical Exam Physical Exam Mild stent discomfort Plan Plan of Fpc today if ok with primary service F/U next week in office for cysto and stent removal Comment Review of Relevant I have reviewed the following items salomon (where applicable) has been applied. Labs Laboratory Tests Test 03/20/17 12:50 03/21/17 05:14 White Blood Count 10.9 x10^3/uL (4.0-11.0) 10.3 x10^3/uL (4.0-11.0) Red Blood Count 4.36 x10^6/uL (3.50-5.40) 4.27 x10^6/uL (3.50-5.40) Hemoglobin 13.7 g/dL (12.0-15.5) 13.3 g/dL (12.0-15.5) Hematocrit 40.8 % (36.0-47.0) 40.4 % (36.0-47.0) Mean Corpuscular Volume 94 fL (79-100) 95 fL (79-100) Mean Corpuscular Hemoglobin 31 pg (25-35) 31 pg (25-35) Mean Corpuscular Hemoglobin Concent 34 g/dL (31-37) 33 g/dL (31-37) Red Cell Distribution Width 13.7 % (11.5-14.5) 13.8 % (11.5-14.5) Platelet Count 264 x10^3/uL (140-400) 268 x10^3/uL (140-400) Neutrophils (%) (Auto) 82 % (31-73) 87 % (31-73) Lymphocytes (%) (Auto) 15 % (24-48) 10 % (24-48) Monocytes (%) (Auto) 3 % (0-9) 2 % (0-9) Eosinophils (%) (Auto) 0 % (0-3) 0 % (0-3) Basophils (%) (Auto) 0 % (0-3) 0 % (0-3) Neutrophils # (Auto) 8.9 x10^3uL (1.8-7.7) 9.0 x10^3uL (1.8-7.7) Lymphocytes # (Auto) 1.6 x10^3/uL (1.0-4.8) 1.0 x10^3/uL (1.0-4.8) Monocytes # (Auto) 0.4 x10^3/uL (0.0-1.1) 0.2 x10^3/uL (0.0-1.1) Eosinophils # (Auto) 0.0 x10^3/uL (0.0-0.7) 0.0 x10^3/uL (0.0-0.7) Basophils # (Auto) 0.0 x10^3/uL (0.0-0.2) 0.0 x10^3/uL (0.0-0.2) Prothrombin Time 12.0 SEC (11.7-14.0) Prothromb Time International Ratio 0.9 (0.8-1.1) Sodium Level 142 mmol/L (136-145) 140 mmol/L (136-145) Potassium Level 4.0 mmol/L (3.5-5.1) 3.8 mmol/L (3.5-5.1) Chloride Level 105 mmol/L (98-107) 105 mmol/L (98-107) Carbon Dioxide Level 29 mmol/L (21-32) 27 mmol/L (21-32) Anion Gap 8 (6-14) 8 (6-14) Blood Urea Nitrogen 22 mg/dL (7-20) 13 mg/dL (7-20) Creatinine 1.4 mg/dL (0.6-1.0) 1.0 mg/dL (0.6-1.0) Estimated GFR (Cockcroft-Gault) 42.1 62.1 BUN/Creatinine Ratio 16 (6-20) Glucose Level 127 mg/dL (70-99) 198 mg/dL (70-99) Calcium Level 7.8 mg/dL (8.5-10.1) 8.1 mg/dL (8.5-10.1) Total Bilirubin 0.2 mg/dL (0.2-1.0) Aspartate Amino Transf (AST/SGOT) 47 U/L (15-37) Alanine Aminotransferase (ALT/SGPT) 41 U/L (14-59) Alkaline Phosphatase 77 U/L (46-116) Total Protein 6.9 g/dL (6.4-8.2) Albumin 3.4 g/dL (3.4-5.0) Albumin/Globulin Ratio 1.0 (1.0-1.7) Segmented Neutrophils % 85 % (35-66) Band Neutrophils % 6 % (0-9) Lymphocytes % 7 % (24-48) Monocytes % 1 % (0-10) Basophils % 1 % (0-3) Platelet Estimate Adequate (ADEQUATE) Laboratory Tests Test 03/20/17 12:50 03/21/17 05:14 White Blood Count 10.9 x10^3/uL (4.0-11.0) 10.3 x10^3/uL (4.0-11.0) Red Blood Count 4.36 x10^6/uL (3.50-5.40) 4.27 x10^6/uL (3.50-5.40) Hemoglobin 13.7 g/dL (12.0-15.5) 13.3 g/dL (12.0-15.5) Hematocrit 40.8 % (36.0-47.0) 40.4 % (36.0-47.0) Mean Corpuscular Volume 94 fL (79-100) 95 fL (79-100) Mean Corpuscular Hemoglobin 31 pg (25-35) 31 pg (25-35) Mean Corpuscular Hemoglobin Concent 34 g/dL (31-37) 33 g/dL (31-37) Red Cell Distribution Width 13.7 % (11.5-14.5) 13.8 % (11.5-14.5) Platelet Count 264 x10^3/uL (140-400) 268 x10^3/uL (140-400) Neutrophils (%) (Auto) 82 % (31-73) 87 % (31-73) Lymphocytes (%) (Auto) 15 % (24-48) 10 % (24-48) Monocytes (%) (Auto) 3 % (0-9) 2 % (0-9) Eosinophils (%) (Auto) 0 % (0-3) 0 % (0-3) Basophils (%) (Auto) 0 % (0-3) 0 % (0-3) Neutrophils # (Auto) 8.9 x10^3uL (1.8-7.7) 9.0 x10^3uL (1.8-7.7) Lymphocytes # (Auto) 1.6 x10^3/uL (1.0-4.8) 1.0 x10^3/uL (1.0-4.8) Monocytes # (Auto) 0.4 x10^3/uL (0.0-1.1) 0.2 x10^3/uL (0.0-1.1) Eosinophils # (Auto) 0.0 x10^3/uL (0.0-0.7) 0.0 x10^3/uL (0.0-0.7) Basophils # (Auto) 0.0 x10^3/uL (0.0-0.2) 0.0 x10^3/uL (0.0-0.2) Prothrombin Time 12.0 SEC (11.7-14.0) Prothromb Time International Ratio 0.9 (0.8-1.1) Sodium Level 142 mmol/L (136-145) 140 mmol/L (136-145) Potassium Level 4.0 mmol/L (3.5-5.1) 3.8 mmol/L (3.5-5.1) Chloride Level 105 mmol/L (98-107) 105 mmol/L (98-107) Carbon Dioxide Level 29 mmol/L (21-32) 27 mmol/L (21-32) Anion Gap 8 (6-14) 8 (6-14) Blood Urea Nitrogen 22 mg/dL (7-20) 13 mg/dL (7-20) Creatinine 1.4 mg/dL (0.6-1.0) 1.0 mg/dL (0.6-1.0) Estimated GFR (Cockcroft-Gault) 42.1 62.1 BUN/Creatinine Ratio 16 (6-20) Glucose Level 127 mg/dL (70-99) 198 mg/dL (70-99) Calcium Level 7.8 mg/dL (8.5-10.1) 8.1 mg/dL (8.5-10.1) Total Bilirubin 0.2 mg/dL (0.2-1.0) Aspartate Amino Transf (AST/SGOT) 47 U/L (15-37) Alanine Aminotransferase (ALT/SGPT) 41 U/L (14-59) Alkaline Phosphatase 77 U/L (46-116) Total Protein 6.9 g/dL (6.4-8.2) Albumin 3.4 g/dL (3.4-5.0) Albumin/Globulin Ratio 1.0 (1.0-1.7) Segmented Neutrophils % 85 % (35-66) Band Neutrophils % 6 % (0-9) Lymphocytes % 7 % (24-48) Monocytes % 1 % (0-10) Basophils % 1 % (0-3) Platelet Estimate Adequate (ADEQUATE) Medications Current Medications Fentanyl Citrate (Fentanyl 2ml Vial) 50 mcg PRN Q2HR PRN IV PAIN Last administered on 03/21/17 08:32; Start 03/20/17 at 12:30 Ondansetron HCl (Zofran) 4 mg PRN Q6HRS PRN IV NAUSEA/VOMITING Last administered on 03/21/17 01:31; Start 03/20/17 at 12:30 Sodium Chloride 1,000 ml @ 125 mls/hr 1X ONCE IV Last administered on 12:36; Start 03/20/17 at 13:00; Stop 03/20/17 at 20:59; Status DC Fentanyl Citrate (Fentanyl 2ml Vial) 25 mcg PRN Q5MIN PRN IV MILD PAIN; Start 03/20/17 at 13:45; Stop 03/20/17 at 23:01; Status DC Fentanyl Citrate (Fentanyl 2ml Vial) 50 mcg PRN Q5MIN PRN IV MODERATE PAIN Last administered on 03/20/17 18:06; Start 03/20/17 at 13:45; Stop 03/20/17 at 23:01; Status DC Morphine Sulfate 1 mg PRN Q10MIN PRN IV SEVERE PAIN; Start 03/20/17 at 13:45; Stop 03/20/17 at 23:01; Status DC Ringer's Solution 1,000 ml @ 30 mls/hr Q24H IV Last administered on 03/20/17 17:00; Start 03/20/17 at 14:00; Stop 03/20/17 at 23:01; Status DC Lidocaine HCl 2 ml PRN 1X PRN ID PRIOR TO IV START; Start 03/20/17 at 13:45; Stop 03/20/17 at 23:01; Status DC Hydromorphone HCl (Dilaudid) 0.5 mg PRN Q10MIN PRN IV SEV PAIN, Second choice; Start 03/20/17 at 13:45; Stop 03/20/17 at 23:01; Status DC Prochlorperazine Edisylate (Compazine) 5 mg PACU PRN PRN IV NAUSEA, MRX1; Start 03/20/17 at 13:45; Stop 03/20/17 at 23:01; Status DC Lidocaine HCl (Glydo (Lidocaine) Jelly) 6 coco STK-MED ONCE .ROUTE Last administered on 03/20/17 16:40; Start 03/20/17 at 14:15; Stop 03/20/17 at 14:16 ; Status DC Iohexol (Omnipaque 300 Mg/ml) 50 ml STK-MED ONCE .ROUTE Last administered on 16:39; Start 03/20/17 at 14:15; Stop 03/20/17 at 14:16; Status DC Lidocaine HCl (Glydo (Lidocaine) Jelly) 6 coco STK-MED ONCE .ROUTE Last administered on 03/20/17 16:40; Start 03/20/17 at 14:15; Stop 03/20/17 at 14:16 ; Status DC Propofol 20 ml @ As Directed STK-MED ONCE IV ; Start 03/20/17 at 15:26; Stop at 15:27; Status DC Lidocaine HCl (Lidocaine Pf 2% Vial) 5 ml STK-MED ONCE .ROUTE ; Start 03/20/17 at 15:26; Stop 03/20/17 at 15:27; Status DC Ondansetron HCl (Zofran) 4 mg STK-MED ONCE .ROUTE ; Start 03/20/17 at 15:26; Stop 03/20/17 at 15:27; Status DC Dexamethasone Sodium Phosphate (Decadron) 20 mg STK-MED ONCE .ROUTE ; Start at 15:26; Stop 03/20/17 at 15:27; Status DC Acetaminophen/ Hydrocodone Bitart (Lortab 5/325) 1 tab PRN Q6HRS PRN PO PAIN Last administered on 03/21/17 06:28; Start 03/20/17 at 15:30 Levothyroxine Sodium (Synthroid) 100 mcg DAILY07 PO Last administered on 06:28; Start 03/21/17 at 07:00 Ondansetron HCl (Zofran Odt) 4 mg PRN Q8HRS PRN PO NAUSEA Last administered on 03/21/17 04:38; Start 03/20/17 at 15:30 Phenazopyridine HCl (Pyridium) 100 mg TID PO Last administered on 03/20/17 21: 13; Start 03/20/17 at 21:00; Stop 03/21/17 at 04:35; Status DC Zolpidem Tartrate (Ambien) 5 mg QHS PO Last administered on 03/20/17 21:12; Start 03/20/17 at 21:00 Fentanyl Citrate (Fentanyl 2ml Vial) 100 mcg STK-MED ONCE .ROUTE ; Start at 15:26; Stop 03/20/17 at 15:27; Status DC Sodium Chloride 1,000 ml @ 100 mls/hr Q10H IV ; Start 03/20/17 at 23:00 Acetaminophen (Tylenol) 650 mg PRN Q6HRS PRN PO FEVER; Start 03/20/17 at 15:30 Ondansetron HCl (Zofran) 4 mg PRN Q6HRS PRN IV NAUSEA/VOMITING; Start 03/20/17 at 15:30; Status Cancel Morphine Sulfate 2 mg PRN Q2HR PRN IV PAIN Last administered on 03/21/17 01:23 ; Start 03/20/17 at 15:30 Tramadol HCl (Ultram) 50 mg PRN Q6HRS PRN PO PAIN; Start 03/20/17 at 15:30 Hydralazine HCl (Apresoline) 10 mg PRN Q4HRS PRN IVP ELEVATED BP, SEE COMMENTS ; Start 03/20/17 at 15:30 Docusate Sodium (Colace) 100 mg PRN DAILY PRN PO CONSTIPATION; Start 03/20/17 at 15:30 Tamsulosin HCl (Flomax) 0.4 mg QHS PO Last administered on 03/20/17 21:12; Start 03/20/17 at 21:00 Zolpidem Tartrate (Ambien) 5 mg PRN QHS PRN PO IF CONT INSOMNIA; Start at 15:45 Scopolamine (Transderm-Scop) 1 patch Q3DAYS TD Last administered on 03/20/17 16:30; Start 03/20/17 at 16:30 Cefazolin Sodium/ Dextrose 50 ml @ As Directed STK-MED ONCE IV ; Start 03/20/17 at 16:17; Stop 03/20/17 at 16:18; Status DC Ephedrine Sulfate 50 mg STK-MED ONCE IV ; Start 03/20/17 at 16:29; Stop at 16:30; Status DC Cefazolin Sodium/ Dextrose 50 ml @ 100 mls/hr 1X ONCE IV Last administered on 03/20/17 16:25; Start 03/20/17 at 17:00; Stop 03/20/17 at 17:29; Status DC Phenazopyridine HCl (Pyridium) 200 mg TID PO ; Start 03/21/17 at 09:00 Phenazopyridine HCl (Pyridium) 100 mg 1X ONCE PO Last administered on 04:56; Start 03/21/17 at 05:00; Stop 03/21/17 at 05:01; Status DC Active Scripts Active [place] 5-325 Tablet (Acetaminophen/Hydrocodone Bitart) 1 Each Tablet 1-2 Tab PO Q4-6HRS Cipro (Ciprofloxacin Hcl) 500 Mg Tablet 1 Tab PO BID Zofran Odt (Ondansetron) 4 Mg Tab.rapdis 1 Tab SL Q8HRS Reported Phenazopyridine Hcl 100 Mg Tablet 1 Tab PO TID Ambien (Zolpidem Tartrate) 10 Mg Tablet 1 Tab PO QHS Hydrochlorothiazide Tablet (Hydrochlorothiazide) 25 Mg Tablet 1 Tab PO DAILY Synthroid (Levothyroxine Sodium) 100 Mcg Tablet 1 Tab PO DAILY Vitals/I & O Vital Sign - Last 24 Hours 03/20/17 03/20/17 03/20/17 03/20/17 11:35 11:35 11:45 12:36 Temp 97.3 97.3 97.3 97.3 Pulse 55 55 Resp 20 20 B/P (MAP) 117/76 (90) 117/76 (90) Pulse Ox 99 99 O2 Delivery Room Air Room Air Room Air Room Air 03/20/17 03/20/17 03/20/17 03/20/17 15:00 15:10 16:10 17:12 Temp 97.3 97.7 98 97.3 97.7 98.0 Pulse 56 40 52 Resp 20 20 16 B/P (MAP) 116/75 (89) 106/75 95/60 Pulse Ox 99 96 99 O2 Delivery Room Air Room Air Room Air Simple Mask O2 Flow Rate 8 03/20/17 03/20/17 03/20/17 03/20/17 17:26 17:30 17:41 17:49 Temp 98 98.0 98.0 98.0 Pulse 52 56 Resp 17 21 23 B/P (MAP) 128/66 115/76 Pulse Ox 100 97 96 O2 Delivery Simple Mask Mask Room Air Room Air O2 Flow Rate 6 6 03/20/17 03/20/17 03/20/17 03/20/17 17:56 18:06 18:11 18:30 Temp 98.0 98.0 98.0 98.0 Pulse 58 52 Resp 23 19 19 B/P (MAP) 110/73 114/73 Pulse Ox 98 98 98 O2 Delivery Room Air Room Air Room Air Room Air O2 Flow Rate 6 03/20/17 03/20/17 03/20/17 03/20/17 18:40 18:55 19:10 19:25 Temp 97.5 97.5 Pulse 64 50 58 Resp 18 16 B/P (MAP) 122/55 (77) 115/65 (82) 109/70 (83) 114/72 (86) Pulse Ox 98 96 96 O2 Delivery Room Air Room Air Room Air Room Air 03/20/17 03/20/17 03/20/17 03/20/17 20:05 20:35 20:45 21:13 Pulse 56 51 B/P (MAP) 101/62 (75) 111/64 (80) Pulse Ox 94 93 94 O2 Delivery Room Air Room Air Room Air Room Air 03/20/17 03/20/17 03/21/17 03/21/17 21:35 23:05 01:23 01:55 Pulse 49 B/P (MAP) 106/62 (77) Pulse Ox 94 94 94 O2 Delivery Room Air Room Air Room Air Room Air 03/21/17 03/21/17 03/21/17 03/21/17 03:03 04:30 04:38 05:08 Temp 97.9 97.9 Pulse 47 43 Resp 16 B/P (MAP) 95/45 (62) 110/54 (72) Pulse Ox 96 96 96 O2 Delivery Room Air Room Air Room Air 03/21/17 03/21/17 03/21/17 03/21/17 06:28 07:00 08:32 08:32 Temp 98.1 98.1 Pulse 56 Resp 18 B/P (MAP) 104/62 (76) Pulse Ox 96 97 O2 Delivery Room Air Room Air Room Air Room Air Intake and Output 03/20/17 03/20/17 03/21/17 14:59 22:59 06:59 Intake Total 1480 ml Output Total 250 ml 500 ml Balance 1230 ml -500 ml ELAN GARCIA MD Mar 21, 2017 08:56
[2017-03-21] MEDS: IV NORMAL SALINE 1000ML BAG 1,000 ML IV SCH (09:00)
[2017-03-21] MEDS ORDERED: PHENAZOPYRIDINE 200 MG TABLET. PO SCH (09:00)
[2017-03-21] MEDS ORDERED: SULF1TAB24 PO (10:38)
--- NOTE | 2017-03-21 10:41 | PDOC3 ---
Discharge Summary Visit Information Date of Admission: Mar 20, 2017 Date of Discharge: Mar 21, 2017 Admitting Diagnosis: renal colic Final Diagnosis left distal ureteral stone renal colic, nephrolithiasis UTI obesity, BMI 31 Brief Hospital Course Allergies Allergies Coded Allergies Type Severity Reaction Last Updated Verified No Known Drug Allergies 11/26/16 No Vital Signs Vital Signs Date Time Temp Pulse Resp B/P (MAP) Pulse Ox O2 Delivery O2 Flow Rate FiO2 03/21/17 10:04 Room Air 03/21/17 07:00 98.1 56 18 104/62 (76) 97 98.1 03/20/17 18:11 6 Lab Results Laboratory Tests Test 03/20/17 12:50 03/21/17 05:14 White Blood Count 10.9 x10^3/uL (4.0-11.0) 10.3 x10^3/uL (4.0-11.0) Red Blood Count 4.36 x10^6/uL (3.50-5.40) 4.27 x10^6/uL (3.50-5.40) Hemoglobin 13.7 g/dL (12.0-15.5) 13.3 g/dL (12.0-15.5) Hematocrit 40.8 % (36.0-47.0) 40.4 % (36.0-47.0) Mean Corpuscular Volume 94 fL (79-100) 95 fL (79-100) Mean Corpuscular Hemoglobin 31 pg (25-35) 31 pg (25-35) Mean Corpuscular Hemoglobin Concent 34 g/dL (31-37) 33 g/dL (31-37) Red Cell Distribution Width 13.7 % (11.5-14.5) 13.8 % (11.5-14.5) Platelet Count 264 x10^3/uL (140-400) 268 x10^3/uL (140-400) Neutrophils (%) (Auto) 82 % (31-73) 87 % (31-73) Lymphocytes (%) (Auto) 15 % (24-48) 10 % (24-48) Monocytes (%) (Auto) 3 % (0-9) 2 % (0-9) Eosinophils (%) (Auto) 0 % (0-3) 0 % (0-3) Basophils (%) (Auto) 0 % (0-3) 0 % (0-3) Neutrophils # (Auto) 8.9 x10^3uL (1.8-7.7) 9.0 x10^3uL (1.8-7.7) Lymphocytes # (Auto) 1.6 x10^3/uL (1.0-4.8) 1.0 x10^3/uL (1.0-4.8) Monocytes # (Auto) 0.4 x10^3/uL (0.0-1.1) 0.2 x10^3/uL (0.0-1.1) Eosinophils # (Auto) 0.0 x10^3/uL (0.0-0.7) 0.0 x10^3/uL (0.0-0.7) Basophils # (Auto) 0.0 x10^3/uL (0.0-0.2) 0.0 x10^3/uL (0.0-0.2) Prothrombin Time 12.0 SEC (11.7-14.0) Prothromb Time International Ratio 0.9 (0.8-1.1) Sodium Level 142 mmol/L (136-145) 140 mmol/L (136-145) Potassium Level 4.0 mmol/L (3.5-5.1) 3.8 mmol/L (3.5-5.1) Chloride Level 105 mmol/L (98-107) 105 mmol/L (98-107) Carbon Dioxide Level 29 mmol/L (21-32) 27 mmol/L (21-32) Anion Gap 8 (6-14) 8 (6-14) Blood Urea Nitrogen 22 mg/dL (7-20) 13 mg/dL (7-20) Creatinine 1.4 mg/dL (0.6-1.0) 1.0 mg/dL (0.6-1.0) Estimated GFR (Cockcroft-Gault) 42.1 62.1 BUN/Creatinine Ratio 16 (6-20) Glucose Level 127 mg/dL (70-99) 198 mg/dL (70-99) Calcium Level 7.8 mg/dL (8.5-10.1) 8.1 mg/dL (8.5-10.1) Total Bilirubin 0.2 mg/dL (0.2-1.0) Aspartate Amino Transf (AST/SGOT) 47 U/L (15-37) Alanine Aminotransferase (ALT/SGPT) 41 U/L (14-59) Alkaline Phosphatase 77 U/L (46-116) Total Protein 6.9 g/dL (6.4-8.2) Albumin 3.4 g/dL (3.4-5.0) Albumin/Globulin Ratio 1.0 (1.0-1.7) Segmented Neutrophils % 85 % (35-66) Band Neutrophils % 6 % (0-9) Lymphocytes % 7 % (24-48) Monocytes % 1 % (0-10) Basophils % 1 % (0-3) Platelet Estimate Adequate (ADEQUATE) Laboratory Tests Test 03/20/17 12:50 03/21/17 05:14 White Blood Count 10.9 x10^3/uL (4.0-11.0) 10.3 x10^3/uL (4.0-11.0) Red Blood Count 4.36 x10^6/uL (3.50-5.40) 4.27 x10^6/uL (3.50-5.40) Hemoglobin 13.7 g/dL (12.0-15.5) 13.3 g/dL (12.0-15.5) Hematocrit 40.8 % (36.0-47.0) 40.4 % (36.0-47.0) Mean Corpuscular Volume 94 fL (79-100) 95 fL (79-100) Mean Corpuscular Hemoglobin 31 pg (25-35) 31 pg (25-35) Mean Corpuscular Hemoglobin Concent 34 g/dL (31-37) 33 g/dL (31-37) Red Cell Distribution Width 13.7 % (11.5-14.5) 13.8 % (11.5-14.5) Platelet Count 264 x10^3/uL (140-400) 268 x10^3/uL (140-400) Neutrophils (%) (Auto) 82 % (31-73) 87 % (31-73) Lymphocytes (%) (Auto) 15 % (24-48) 10 % (24-48) Monocytes (%) (Auto) 3 % (0-9) 2 % (0-9) Eosinophils (%) (Auto) 0 % (0-3) 0 % (0-3) Basophils (%) (Auto) 0 % (0-3) 0 % (0-3) Neutrophils # (Auto) 8.9 x10^3uL (1.8-7.7) 9.0 x10^3uL (1.8-7.7) Lymphocytes # (Auto) 1.6 x10^3/uL (1.0-4.8) 1.0 x10^3/uL (1.0-4.8) Monocytes # (Auto) 0.4 x10^3/uL (0.0-1.1) 0.2 x10^3/uL (0.0-1.1) Eosinophils # (Auto) 0.0 x10^3/uL (0.0-0.7) 0.0 x10^3/uL (0.0-0.7) Basophils # (Auto) 0.0 x10^3/uL (0.0-0.2) 0.0 x10^3/uL (0.0-0.2) Prothrombin Time 12.0 SEC (11.7-14.0) Prothromb Time International Ratio 0.9 (0.8-1.1) Sodium Level 142 mmol/L (136-145) 140 mmol/L (136-145) Potassium Level 4.0 mmol/L (3.5-5.1) 3.8 mmol/L (3.5-5.1) Chloride Level 105 mmol/L (98-107) 105 mmol/L (98-107) Carbon Dioxide Level 29 mmol/L (21-32) 27 mmol/L (21-32) Anion Gap 8 (6-14) 8 (6-14) Blood Urea Nitrogen 22 mg/dL (7-20) 13 mg/dL (7-20) Creatinine 1.4 mg/dL (0.6-1.0) 1.0 mg/dL (0.6-1.0) Estimated GFR (Cockcroft-Gault) 42.1 62.1 BUN/Creatinine Ratio 16 (6-20) Glucose Level 127 mg/dL (70-99) 198 mg/dL (70-99) Calcium Level 7.8 mg/dL (8.5-10.1) 8.1 mg/dL (8.5-10.1) Total Bilirubin 0.2 mg/dL (0.2-1.0) Aspartate Amino Transf (AST/SGOT) 47 U/L (15-37) Alanine Aminotransferase (ALT/SGPT) 41 U/L (14-59) Alkaline Phosphatase 77 U/L (46-116) Total Protein 6.9 g/dL (6.4-8.2) Albumin 3.4 g/dL (3.4-5.0) Albumin/Globulin Ratio 1.0 (1.0-1.7) Segmented Neutrophils % 85 % (35-66) Band Neutrophils % 6 % (0-9) Lymphocytes % 7 % (24-48) Monocytes % 1 % (0-10) Basophils % 1 % (0-3) Platelet Estimate Adequate (ADEQUATE) Brief Hospital Course 36yo F, was transferred from [facility] FOR KIDney stone. SHe has h/o bl kidney stone , lithotripsy. she fu with uro, but never knows the etiology. T showed left side stone 3mm, was dced with flomax and cipro, but only took cipro, Uro taken to OR, stent placed, stone removed, will have f/u in one week in Uro clinic Discharge Information Condition at Discharge: Improved Follow Up: Weeks Disposition/Orders: D/C to Home Scheduled Ciprofloxacin Hcl (Cipro), 1 TAB PO BID Hydrochlorothiazide (Hydrochlorothiazide Tablet ), 1 TAB PO DAILY, (Reported) Hydrocodone/Apap 5-325 ([place] 5-325 Tablet), 1-2 TAB PO Q4-6HRS Levothyroxine Sodium (Synthroid), 1 TAB PO DAILY, (Reported) Ondansetron (Zofran Odt), 1 TAB SL Q8HRS Phenazopyridine Hcl (Phenazopyridine Hcl), 1 TAB PO TID, (Reported) Zolpidem Tartrate (Ambien), 1 TAB PO QHS, (Reported) Patient Instructions Patient Instructions time > 30 min, CATHERINE CAMPBELL MD Mar 21, 2017 10:41
[2017-03-21 11:00] VITALS: BP 94/48
[2017-03-21] MEDS ORDERED: KETO10TA PO (11:30)
[2017-03-21] MEDS ORDERED: PROM25TA10 PO (11:31)
--- NOTE | 2017-03-26 10:24 | PDOC4 ---
Operative Note Operative Note Preoperative diagnosis left ureteral stone. Procedure cystoscopy left retrograde Polygram left ureteroscopy with left ureteral stone extraction and left ureteral stent placement. Surgeon Sherice anesthesia general. Indications patient is a very pleasant 36-year-old white female with a 9 day history of left renal colic found to have a 3 mm left distal ureteral stone. Patient has been counseled regarding the options alternatives benefits risks and possible complications of medical expulsive therapy versus surgical intervention with cystoscopy left retrograde Polygram possible ureteroscopy possible laser lithotripsy and left ureteral stent placement. Patient understands this and does wish to proceed ahead with operation. Procedure note, after obtaining informed consent patient was taken to the operating room and after an excellent general anesthetic patient was placed in a dorsal lithotomy position. Groin was prepped and draped in a sterile fashion and the the patient was preloaded with IV antibiotics. Panendoscopy and cystoscopy were then performed with the 30 and 70 lenses and 21 [place] cystoscope sheath. Latter was entered and inspected. Both ureteral orifices were identified and found be grossly patent. Bladder wall appeared smooth and without any lesions no bladder tumors or bladder stones were identified. A left retrograde Polygram was then performed. Patient was noted to have a filling defect in the left distal ureter consistent with the patient stone with dilation of the ureter above that level. Following this a floppy tip ZIP wire was then passed up the left ureteral orifice past the stone up the left ureter to the left kidney. The left distal ureter and ureteral orifice were then gently balloon dilated. The balloon dilator was removed and the ZIP wire left in place as a safety wire. Bladder was then drained and the cystoscope withdrawn from the patient. Following this the thin rigid ureteroscope was then passed per urethra up alongside the ZIP wire up the left ureter to the level of the stone. The stone was found to be approximately 3 mm in diameter and brownish in color. The stone was then grasped with the 0 tip nitinol basket and the stone gently removed from the patient without difficulty along with the scope. The stone was sent for stone analysis. The ureteroscope was again passed up the left ureter and the left ureter inspected and found to be completely intact with some mild edema from having had the prior stone. Retrograde Polygram showed the collecting system completely intact. Following this the scope was moved from the patient and the cystoscope and replaced. A double-J stent was then passed up the ZIP wire placing one curl in the left kidney and the other curl in the bladder and the ZIP wire removed stent position was checked by fluoroscopy and direct vision and found to be in good position. Following this the bladder was then drained and the cystoscope withdrawn from the patient. Patient tolerated the procedure very well and was taken to recovery in stable condition. We'll plan on having the patient follow up in 1 week for cystoscopy and stent removal. ELAN GARCIA MD Mar 26, 2017 10:24
[2017-04-02 15:26] LABS: CA OXALATE DIHYDRATE 20 % (.); CA OXALATE MONOHYDR 75 % (.); COLOR Brown (.); SIZE 3x2x1 mm (.)
== END 2017-03-21 11:45 | disposition home or self-care (01) | DRG 669 ==
LOC: 4 NORTH 11:56
PROVIDERS: ADMIT Internal Medicine; ATTEND Internal Medicine
PROC: 0TC78ZZ Extirpation of Matter from Left Ureter, Via Natural or Artificial Opening Endoscopic (ICD-10-PCS; 2017-03-20)
PROC: 0T778DZ Dilation of Left Ureter with Intraluminal Device, Via Natural or Artificial Opening Endoscopic (ICD-10-PCS; 2017-03-20)
PROC: BT1F1ZZ Fluoroscopy of Left Kidney, Ureter and Bladder using Low Osmolar Contrast (ICD-10-PCS; principal; 2017-03-20 16:30)
DX: N20.2 Calculus of kidney with calculus of ureter (principal); N39.0 Urinary tract infection, site not specified; N13.8 Other obstructive and reflux uropathy; N13.30 Unspecified hydronephrosis; E03.9 Hypothyroidism, unspecified; G43.909 Migraine, unspecified, not intractable, without status migrainosus; F17.210 Nicotine dependence, cigarettes, uncomplicated; G47.00 Insomnia, unspecified; E66.9 Obesity, unspecified; N81.10 Cystocele, unspecified; N81.6 Rectocele; Z79.899 Other long term (current) drug therapy; Z90.49 Acquired absence of other specified parts of digestive tract; Z68.31 Body mass index [BMI] 31.0-31.9, adult; Z87.442 Personal history of urinary calculi; Z90.710 Acquired absence of both cervix and uterus; Z79.2 Long term (current) use of antibiotics
CPT/HCPCS: 36415; 74420; 80048; 80053; 82365; 85007; 85027; 85610; C1726; C1769; C2617; J0690; J1100; J2001; J2270; J2405; J2704; J3010; J7030; J7120; Q0162; Q9967

== ENCOUNTER 2017-03-26 10:58 | Emergency (ER) | payer BC ==
[~2017-03-26] VITALS: Ht 157.5 cm; Wt 76.2 kg
[~2017-03-26 10:58] MED LIST changes: +HYDR25TA9 PO; +LEVO100T PO; +PHEN-443 PO; +PROM25TA10 PO; +SULF1TAB24 PO; +ZOLP10TA PO
[2017-03-26 12:25] LABS: BILIRUBIN,URINE NEGATIVE (NEG); GLUCOSE,URINE NEGATIVE (NEG); NITRITE,URINE NEGATIVE (NEG); PROTEIN,URINE 100 mg/dL (NEG-TRACE); UROBILINOGEN,URINE 0.2 mg/dL (0.2 mg/dL)
[2017-03-26 12:25] LABS: BASO # 0.1 x10^3/uL (0.0-0.2); BASO % 1 % (0-3); EOS % 4 % (0-3); HEMATOCRIT 38.8 % (36.0-47.0); HEMOGLOBIN 13.1 g/dL (12.0-15.5); LYMPH # 2.5 x10^3/uL (1.0-4.8); LYMPH % 32 % (24-48); MEAN CORPUSCULAR HEMOGLOBIN 32 pg (25-35); MEAN CORPUSCULAR HGB CONC 34 g/dL (31-37); MEAN CORPUSCULAR VOLUME 94 fL (79-100); MONO % 5 % (0-9); NEUT % 59 % (31-73); PLATELET COUNT 260 x10^3/uL (140-400); RED BLOOD COUNT 4.14 x10^6/uL (3.50-5.40); RED CELL DISTRIBUTION WIDTH 13.7 % (11.5-14.5)
--- NOTE | 2017-03-26 12:25 | PHYS DOC ---
Past Medical History Past Medical History: Hypothyroid, Kidney Stone, Migraines, Other Additional Past Medical Histor: ADD,INSOMNIA Past Surgical History: Appendectomy, Hysterectomy, Other Additional Past Surgical Histo: LITHOTRIPSY,BREAST IMPLANTS; bladder sling Alcohol Use: Occasionally Drug Use: None Adult General Chief Complaint Chief Complaint: LOWER EXTREMITY SWELLING HPI HPI 36-year-old female presenting to the emergency department today with swelling all over. This started about a week ago. She reports having history of kidney stones for which Dr. Smiley has been caring for her. She recently had a stent placement removal. She reports a 15 pound weight gain in the last week. She states she has swelling in the left side of her leg more than the right side of her leg. She denies any pain. Duration constant. No alleviating or exacerbating factors. Associated with weight gain. Review of systems is negative for chest pain shortness of breath abdominal pain nausea vomiting fevers or chills. All other review of systems is negative unless otherwise noted in history of present illness. ED course: 36-year-old female presenting to the emergency department today with generalized swelling. Triage vital signs afebrile normal pulse. Normal respirations. Normal vital signs. Pertinent physical exam findings showed mild 1 + edema on the left leg with trace edema on the right leg. Otherwise physical exam is unremarkable. Abdomen is soft and nontender. Blood work obtained. Blood work unremarkable. Ultrasound of the extremities to evaluate for DVT obtained. No evidence of DVT. UA has blood in it. Esterase positive. Nitrite negative. Likely contaminated. We will follow culture. The patient was subsequently discharged home to follow-up with PCP over the next 2-3 days. The patient was then discharged home in stable condition to follow up with their primary care physician over the next 2-3 days. They were to return if their symptoms worsened or if they were concerned for any reason. [id number] discharge instructions and return precautions were given. Patient's questions were answered to their satisfaction. Patient is comfortable plan. Review of Systems Review of Systems SEE ABOVE. Current Medications Current Medications Current Medications Medications (Trade) Dose Ordered Sig/[facility] Start Time Stop Time Status Last Admin Dose Admin Hydromorphone HCl (Dilaudid) 0.5 mg 1X ONCE 03/26/17 13:00 03/26/17 13:02 DC 03/26/17 13:11 0.5 MG Ondansetron HCl (Zofran) 4 mg 1X ONCE 03/26/17 13:00 03/26/17 13:02 DC 03/26/17 13:10 4 MG Allergies Allergies Allergies Coded Allergies Type Severity Reaction Last Updated Verified No Known Drug Allergies 11/26/16 No Physical Exam Physical Exam SEE ABOVE Constitutional: Well developed, well nourished, no acute distress, non-toxic appearance. [] HENT: Normocephalic, atraumatic, bilateral external ears normal, oropharynx moist, no oral exudates, nose normal. [] Eyes: PERRLA, EOMI, conjunctiva normal, no discharge. [] Neck: Normal range of motion, no tenderness, supple, no stridor. [] Cardiovascular:Heart rate regular rhythm, no murmur [] Lungs & Thorax: Bilateral breath sounds clear to auscultation [] Abdomen: Bowel sounds normal, soft, no tenderness, no masses, no pulsatile masses. [] Skin: Warm, dry, no erythema, no rash. [] Back: No tenderness, no CVA tenderness. [] Extremities: No tenderness, no cyanosis, no clubbing, ROM intact. Neurologic: Alert and oriented X 3, normal motor function, normal sensory function, no focal deficits noted. [] Psychologic: Affect normal, judgement normal, mood normal. [] Current Patient Data Vital Signs Vital Signs Date Time Temp Pulse Resp B/P (MAP) Pulse Ox O2 Delivery O2 Flow Rate FiO2 03/26/17 11:18 98.2 75 16 134/73 (93) 99 Room Air 98.2 Lab Values Laboratory Tests Test 03/26/17 11:21 03/26/17 11:25 Urine Collection Type Unknown Urine Color Red Urine Clarity Cloudy Urine pH 6.0 Urine Specific [place] 1.020 Urine Protein 100 mg/dL (NEG-TRACE) Urine Glucose (UA) Negative mg/dL (NEG) Urine Ketones (Stick) Negative mg/dL (NEG) Urine Blood Large (NEG) Urine Nitrite Negative (NEG) Urine Bilirubin Negative (NEG) Urine Urobilinogen Dipstick 0.2 mg/dL (0.2 mg/dL) Urine Leukocyte Esterase Moderate (NEG) Urine RBC Tntc /HPF (0-2) Urine WBC Fobs /HPF (0-4) Urine Squamous Epithelial Cells Mod /LPF Urine Bacteria 0 /HPF (0-FEW) White Blood Count 8.0 x10^3/uL (4.0-11.0) Red Blood Count 4.14 x10^6/uL (3.50-5.40) Hemoglobin 13.1 g/dL (12.0-15.5) Hematocrit 38.8 % (36.0-47.0) Mean Corpuscular Volume 94 fL (79-100) Mean Corpuscular Hemoglobin 32 pg (25-35) Mean Corpuscular Hemoglobin Concent 34 g/dL (31-37) Red Cell Distribution Width 13.7 % (11.5-14.5) Platelet Count 260 x10^3/uL (140-400) Neutrophils (%) (Auto) 59 % (31-73) Lymphocytes (%) (Auto) 32 % (24-48) Monocytes (%) (Auto) 5 % (0-9) Eosinophils (%) (Auto) 4 % (0-3) H Basophils (%) (Auto) 1 % (0-3) Neutrophils # (Auto) 4.7 x10^3uL (1.8-7.7) Lymphocytes # (Auto) 2.5 x10^3/uL (1.0-4.8) Monocytes # (Auto) 0.4 x10^3/uL (0.0-1.1) Eosinophils # (Auto) 0.3 x10^3/uL (0.0-0.7) Basophils # (Auto) 0.1 x10^3/uL (0.0-0.2) Sodium Level 142 mmol/L (136-145) Potassium Level 3.7 mmol/L (3.5-5.1) Chloride Level 105 mmol/L (98-107) Carbon Dioxide Level 31 mmol/L (21-32) Anion Gap 6 (6-14) Blood Urea Nitrogen 23 mg/dL (7-20) H Creatinine 1.2 mg/dL (0.6-1.0) H Estimated GFR (Cockcroft-Gault) 50.3 Glucose Level 71 mg/dL (70-99) Calcium Level 8.4 mg/dL (8.5-10.1) L Laboratory Tests 03/26/17 11:25 Laboratory Tests 03/26/17 11:25 EKG EKG [] Radiology/Procedures Radiology/Procedures [] Course & Med Decision Making Course & Med Decision Making Pertinent Labs and Imaging studies reviewed. (See chart for details) [] Dragon Disclaimer Dragon Disclaimer This electronic medical record was generated, in whole or in part, using a voice recognition dictation system. Departure Departure Impression: Primary Impression: Swelling Disposition: 01 HOME, SELF-CARE Condition: STABLE Referrals: JUAN CAMARENA MD (PCP) Patient Instructions: Edema, [id number] Additional Instructions: Thank you for allowing us to participate in your care today. Followup with your primary care physician in 3 days if your symptoms do not improve. Call your Primary Doctor tomorrow and inform them of your visit today. If you do not have a primary care provider you can ask for a list of our primary care providers. Return to the emergency department you have any new or concerning findings. This should be evaluated by the primary care physician and any necessary consulting services for continued management within a few days after discharge. Return to emergency room if you have any new or concerning symptoms including but not limited to fever, chills, nausea, vomiting, intractable pain, any new rashes, chest pain, shortness of air, uncontrolled bleeding, difficulty breathing, and/or vision loss. MARCIA ZAPIEN MD Mar 26, 2017 12:25
[2017-03-26 12:30] LABS: CALCIUM 8.4 mg/dL (8.5-10.1); CREATININE 1.2 mg/dL (0.6-1.0); GFR 50.3; POTASSIUM 3.7 mmol/L (3.5-5.1)
[2017-03-26 12:44] LABS: BACTERIA,URINE 0 /HPF (0-FEW); RBC,URINE TNTC /HPF (0-2); SQUAMOUS EPITHELIAL CELL,UR MOD /LPF
[2017-03-26 12:45] LABS: WBC,URINE FOBS /HPF (0-4)
--- NOTE | 2017-03-26 12:52 | RAD ---
Left lower extremity venous ultrasound, 03/26/2017 : History: Left leg swelling Duplex evaluation including grayscale, color flow and spectral Doppler analysis was performed. The femoral and popliteal veins show no filling defects to suggest DVT. The visualized calf veins are unremarkable. IMPRESSION: There is no sonographic evidence of deep vein thrombosis in the left lower extremity
[2017-03-26] MEDS ORDERED: ONDANSETRON PF 4 MG/2 ML VIAL. IV ONE (13:00)
[2017-03-26] MEDS ORDERED: HYDROmorphone 2 MG/ML VIAL IV ONE (13:00)
--- NOTE | 2017-03-26 14:20 | RAD ---
Right lower extremity venous ultrasound, 03/26/2017 : History: Leg swelling Duplex evaluation including grayscale, color flow and spectral Doppler analysis was performed. The femoral and popliteal veins show no filling defects to suggest DVT. The visualized deep veins in the right calf are unremarkable. IMPRESSION: There is no sonographic evidence of deep vein thrombosis in the right lower extremity
[2017-03-26 16:00] VITALS: BP 124/87
--- NOTE | 2017-03-26 16:15 | RAD ---
Indication left-sided flank pain. Recent left stent removal (today). Noncontrast images of the kidneys were obtained. Note is made of a previous examination 03/11/2017 and the accompanying report. The lung bases are clear. Bilateral breast implants are noted. The liver and spleen appear unremarkable. The gallbladder appears grossly normal. No pancreatic abnormality is seen. There are no adrenal masses. There are no renal calculi on seen side. The right kidney collecting system and ureter appear unremarkable. There is mild left hydronephrosis representing a new finding compared to the previous exam. There is slight hydroureter as well also representing a new finding. No definite calculus is seen along the course of the left ureter. The findings associated with the left collecting system may represent some edema at the UVJ. Infection would be an additional consideration. There is some air in the urinary bladder compatible with recent instrumentation. An additional finding in the abdomen is not seen. No additional finding is apparent in the pelvis. IMPRESSION: No renal calculi are seen on either side. There is mild left hydronephrosis and hydroureter to the level of the UVJ. No obstructing calculus is seen. The findings may reflect edema at the UVJ. Underlying infection is not excluded. PQRS Compliance Statement: One or more of the following individualized dose reduction techniques were utilized for this examination: 1. Automated exposure control 2. Adjustment of the mA and/or kV according to patient size 3. Use of iterative reconstruction technique
--- NOTE | 2017-03-26 17:04 | PDOC2 ---
UROLOGY CONSULT Date of Admission DATE: 03/26/17 TIME: 17:01 ROS ROS: RESPIRATORY: Shortness of breath denies. Cough denies. UROLOGY: Denies blood in urine. Denies difficulty urinating Current Medications Current Medications Ondansetron HCl (Zofran) 4 mg 1X ONCE IV Last administered on 03/26/17 13:10; Start 03/26/17 at 13:00; Stop 03/26/17 at 13:02; Status DC Hydromorphone HCl (Dilaudid) 0.5 mg 1X ONCE IV Last administered on 03/26/17 13:11; Start 03/26/17 at 13:00; Stop 03/26/17 at 13:02; Status DC Active Scripts Active Bactrim Ds Tablet (Sulfamethoxazole/Trimethoprim) 1 Each Tablet 1 Tab PO BID Santa 5-325 Tablet (Acetaminophen/Hydrocodone Bitart) 1 Each Tablet 1-2 Tab PO Q4-6HRS Zofran Odt (Ondansetron) 4 Mg Tab.rapdis 1 Tab SL Q8HRS Reported Promethazine Hcl 25 Mg Tablet 1 Tab PO PRN Q6HRS PRN Ketorolac Tromethamine 10 Mg Tablet 1 Tab PO PRN Q6HRS PRN Phenazopyridine Hcl 100 Mg Tablet 1 Tab PO TID Ambien (Zolpidem Tartrate) 10 Mg Tablet 1 Tab PO QHS Hydrochlorothiazide Tablet (Hydrochlorothiazide) 25 Mg Tablet 1 Tab PO DAILY Synthroid (Levothyroxine Sodium) 100 Mcg Tablet 1 Tab PO DAILY Allergies: Coded Allergies: No Known Drug Allergies (Unverified , 11/26/16) Physical Examination PHYSICAL EXAMINATION: GENERAL: Gen. appearance: No acute distress. Mood/affect: Pleasant. HEENT: Head: Normocephalic, atraumatic. Airway Impairment: No. CHEST: Shape and expansion: Normal. Expansion: Normal. SKIN: General: Warm. Color: Good. GENITOURINARY:External genitalia - wnl. NEUROLOGICAL: Mental status: Alert and oriented 3. Language: Normal. VITALS Vital Signs Date Time Temp Pulse Resp B/P (MAP) Pulse Ox O2 Delivery O2 Flow Rate FiO2 03/26/17 16:00 82 16 124/87 (99) 98 Room Air 03/26/17 11:18 98.2 98.2 Labs Laboratory Tests Test 03/26/17 11:21 03/26/17 11:25 Urine Collection Type Unknown Urine Color Red Urine Clarity Cloudy Urine pH 6.0 Urine Specific [place] 1.020 Urine Protein 100 mg/dL (NEG-TRACE) Urine Glucose (UA) Negative mg/dL (NEG) Urine Ketones (Stick) Negative mg/dL (NEG) Urine Blood Large (NEG) Urine Nitrite Negative (NEG) Urine Bilirubin Negative (NEG) Urine Urobilinogen Dipstick 0.2 mg/dL (0.2 mg/dL) Urine Leukocyte Esterase Moderate (NEG) Urine RBC Tntc /HPF (0-2) Urine WBC Fobs /HPF (0-4) Urine Squamous Epithelial Cells Mod /LPF Urine Bacteria 0 /HPF (0-FEW) White Blood Count 8.0 x10^3/uL (4.0-11.0) Red Blood Count 4.14 x10^6/uL (3.50-5.40) Hemoglobin 13.1 g/dL (12.0-15.5) Hematocrit 38.8 % (36.0-47.0) Mean Corpuscular Volume 94 fL (79-100) Mean Corpuscular Hemoglobin 32 pg (25-35) Mean Corpuscular Hemoglobin Concent 34 g/dL (31-37) Red Cell Distribution Width 13.7 % (11.5-14.5) Platelet Count 260 x10^3/uL (140-400) Neutrophils (%) (Auto) 59 % (31-73) Lymphocytes (%) (Auto) 32 % (24-48) Monocytes (%) (Auto) 5 % (0-9) Eosinophils (%) (Auto) 4 % (0-3) Basophils (%) (Auto) 1 % (0-3) Neutrophils # (Auto) 4.7 x10^3uL (1.8-7.7) Lymphocytes # (Auto) 2.5 x10^3/uL (1.0-4.8) Monocytes # (Auto) 0.4 x10^3/uL (0.0-1.1) Eosinophils # (Auto) 0.3 x10^3/uL (0.0-0.7) Basophils # (Auto) 0.1 x10^3/uL (0.0-0.2) Sodium Level 142 mmol/L (136-145) Potassium Level 3.7 mmol/L (3.5-5.1) Chloride Level 105 mmol/L (98-107) Carbon Dioxide Level 31 mmol/L (21-32) Anion Gap 6 (6-14) Blood Urea Nitrogen 23 mg/dL (7-20) Creatinine 1.2 mg/dL (0.6-1.0) Estimated GFR (Cockcroft-Gault) 50.3 Glucose Level 71 mg/dL (70-99) Calcium Level 8.4 mg/dL (8.5-10.1) Laboratory Tests Test 03/26/17 11:21 03/26/17 11:25 Urine Collection Type Unknown Urine Color Red Urine Clarity Cloudy Urine pH 6.0 Urine Specific [place] 1.020 Urine Protein 100 mg/dL (NEG-TRACE) Urine Glucose (UA) Negative mg/dL (NEG) Urine Ketones (Stick) Negative mg/dL (NEG) Urine Blood Large (NEG) Urine Nitrite Negative (NEG) Urine Bilirubin Negative (NEG) Urine Urobilinogen Dipstick 0.2 mg/dL (0.2 mg/dL) Urine Leukocyte Esterase Moderate (NEG) Urine RBC Tntc /HPF (0-2) Urine WBC Fobs /HPF (0-4) Urine Squamous Epithelial Cells Mod /LPF Urine Bacteria 0 /HPF (0-FEW) White Blood Count 8.0 x10^3/uL (4.0-11.0) Red Blood Count 4.14 x10^6/uL (3.50-5.40) Hemoglobin 13.1 g/dL (12.0-15.5) Hematocrit 38.8 % (36.0-47.0) Mean Corpuscular Volume 94 fL (79-100) Mean Corpuscular Hemoglobin 32 pg (25-35) Mean Corpuscular Hemoglobin Concent 34 g/dL (31-37) Red Cell Distribution Width 13.7 % (11.5-14.5) Platelet Count 260 x10^3/uL (140-400) Neutrophils (%) (Auto) 59 % (31-73) Lymphocytes (%) (Auto) 32 % (24-48) Monocytes (%) (Auto) 5 % (0-9) Eosinophils (%) (Auto) 4 % (0-3) Basophils (%) (Auto) 1 % (0-3) Neutrophils # (Auto) 4.7 x10^3uL (1.8-7.7) Lymphocytes # (Auto) 2.5 x10^3/uL (1.0-4.8) Monocytes # (Auto) 0.4 x10^3/uL (0.0-1.1) Eosinophils # (Auto) 0.3 x10^3/uL (0.0-0.7) Basophils # (Auto) 0.1 x10^3/uL (0.0-0.2) Sodium Level 142 mmol/L (136-145) Potassium Level 3.7 mmol/L (3.5-5.1) Chloride Level 105 mmol/L (98-107) Carbon Dioxide Level 31 mmol/L (21-32) Anion Gap 6 (6-14) Blood Urea Nitrogen 23 mg/dL (7-20) Creatinine 1.2 mg/dL (0.6-1.0) Estimated GFR (Cockcroft-Gault) 50.3 Glucose Level 71 mg/dL (70-99) Calcium Level 8.4 mg/dL (8.5-10.1) Assessment/Plan Patient is a very pleasant 36-year-old white female with history of stone disease who underwent a left ureteroscopic stone extraction and stent placement last week. Patient had her stent removed today in the office and also had been noticing peripheral edema and therefore was seen in the emergency room today. Patient's sonogram showed no evidence of DVT. Patient's CT abdomen and pelvis just showed some mild left-sided hydroureteronephrosis. No residual stones were identified in either ureter. Patient's white count was within normal limits and her creatinine is 1.2. Urine showed no bacteria. Patient was having some left- sided flank pain which resolved with Toradol. Patient is being worked up further for her peripheral edema and from a urology standpoint we will have her follow-up with Dr. Uribe at urology in 2-4 weeks. ELAN GARCIA MD Mar 26, 2017 17:04
[2017-03-26 17:11] LABS: ALBUMIN 3.2 g/dL (3.4-5.0); DIRECT BILIRUBIN 0.1 mg/dL (0.0-0.2); TOTAL BILIRUBIN 0.3 mg/dL (0.2-1.0); TOTAL PROTEIN 6.6 g/dL (6.4-8.2)
== END 2017-03-26 17:55 | disposition home or self-care (01) ==
LOC: ER 10:58
DX: M79.89 Other specified soft tissue disorders (principal); M79.605 Pain in left leg; E03.9 Hypothyroidism, unspecified; G43.909 Migraine, unspecified, not intractable, without status migrainosus; F98.8 Other specified behavioral and emotional disorders with onset usually occurring in childhood and adolescence; Z87.442 Personal history of urinary calculi; G47.00 Insomnia, unspecified; Z90.710 Acquired absence of both cervix and uterus; Z90.49 Acquired absence of other specified parts of digestive tract; Z79.891 Long term (current) use of opiate analgesic
CPT/HCPCS: 36415; 74176; 80048; 80076; 81001; 83880; 85027; 87086; 93971; 96374; 96375; 99285; J1170; J2405